=== PATIENT | female | born 1990 | race Caucasian/White ===

== ENCOUNTER → 2019-03-09 13:45 | Outpatient (CLI) | payer BC, SELFPAY ==
[2019-03-09 14:49] LABS: hCG Titer Quant., Serum 9956 mIU/mL (1-3)
== END ==
PROVIDERS: Family Provider Family Medicine; PCP Family Medicine; Referring Provider Obstetrics & Gynecology; Visit Provider Obstetrics & Gynecology
DX: N92.6 Irregular menstruation, unspecified (principal)
CPT/HCPCS: 36415; 84702

== ENCOUNTER → 2019-03-20 13:52 | Outpatient (CLI) | payer BC, SELFPAY ==
--- NOTE | 2019-03-20 13:54 | US_ITS ---
STUDY: FIRST TRIMESTER OBSTETRICAL ULTRASOUND REASON FOR EXAM: Female, 28 years old dating , viability LMP: February 01, 2019. TECHNIQUE: Transabdominal and Transvaginal TECHNICAL QUALITY: Adequate. PRIOR ULTRASOUND: None. FINDINGS: There is visualization of a single gestational sac in a normal intrauterine position. The mean sac diameter (MSD) measures 1.34 cm, indicating an estimated gestational age (EGA) of 6 weeks, 0 days. The gestational sac shape is within normal limits. There is a visualized yolk sac. The yolk sac measures 5.8 mm. The placenta is non-visualized. There is visualization of a live embryo. The crown-rump length (CRL) measures 1.47 cm, indicating an estimated gestational age (EGA) of 7 weeks, 5 days. There is demonstrated cardiac activity with a heart rate of 127 bpm. The estimated gestation age (EGA) by LMP is 6 weeks, 5 days. The estimated date of delivery (ALIYAH) by LMP is November 08, 2019. The estimated gestation age (EGA) by US is 6 weeks, 6 days. The estimated date of delivery (ALIYAH) by US is November 07, 2019. The uterus measures 10.6 cm x 5.6 cm x 4.0 cm. There is no demonstrated uterine fibroid. The cervix is closed. The right ovary measures 2.4 cm x 2.1 cm x 1.8 cm. There is no right ovarian cyst. There is no visualized right adnexal mass or complex lesion. The left ovary measures 1.9 cm x 1.7 Abel by 1.4 cm. There is no left ovarian cyst. There is no visualized left adnexal mass or complex lesion. There is no fluid in the cul de sac. US/Init OB < 14Wks US IMPRESSION: Single live intrauterine gestation with a mean gestational age of 6 weeks and 6 days. Electronically Signed: Yair Barber, at 10:10 EST , Service support ,
== END ==
PROVIDERS: Referring Provider Obstetrics & Gynecology; Visit Provider Obstetrics & Gynecology
DX: O36.80X0 Pregnancy with inconclusive fetal viability, not applicable or unspecified (principal); Z3A.00 Weeks of gestation of pregnancy not specified
CPT/HCPCS: 76801

== ENCOUNTER → 2019-04-24 17:00 | Outpatient (CLI) | payer BC, SELFPAY ==
[2019-04-24 14:01] VITALS: BMI 44.1
[2019-04-24 18:18] LABS: Amphetamine Urine VISTA NEGATIVE (<1000 ng/mL); Barbiturate Urine VISTA NEGATIVE (< 200 ng/mL); Benzodiazepine Urine VISTA NEGATIVE (< 200 ng/mL); Cocaine Urine VISTA NEGATIVE (< 300 ng/mL); Ecstacy Urine VISTA NEGATIVE (< 500 ng/mL); Methadone Urine VISTA NEGATIVE (< 300 ng/mL); PCP Urine VISTA NEGATIVE (< 25 ng/mL); THC Urine VISTA NEGATIVE (< 50 ng/mL); Vista UDS pH Range 5
[2019-04-24 19:36] LABS: Chlamydia Trachomatis by PCR Negative (Negative); Neisserai gonorrhoeae by PCR Negative (Negative); Probe Check PASS; Sample Adequacy Control PASS; Specimen Processing Control PASS
[2019-04-26 20:39] LABS: HPV Reflexed? NOT INDICATED
== END ==
PROVIDERS: Referring Provider Obstetrics & Gynecology; Visit Provider Obstetrics & Gynecology
DX: Z34.90 Encounter for supervision of normal pregnancy, unspecified, unspecified trimester (principal)
CPT/HCPCS: 80307; 87086; 87088; 87491; 87591; 88175; G0145

== ENCOUNTER → 2019-05-26 12:40 | Outpatient (CLI) | payer BC, SELFPAY ==
[2019-04-24 14:01] VITALS: BMI 44.1
[2019-05-26 13:55] LABS: Absolute Lymphocyte Count 1.71 X10^3/uL (0.83-4.51); Absolute Neutrophil Count 9.1 X10^3/uL (2.0-7.7); Basophil# 0.04 X10^3/uL; Basophil% 0.3 % (0-1); Eosinophil# 0.09 X10^3/uL; Eosinophils% 0.8 % (0-5); Hematocrit 35.9 % (37-47); Hemoglobin 12.5 g/dL (12.0-15.0); Lymphocyte # 1.71 X10^3/ul (4.0); Lymphocyte % 14.3 % (19-41); Mean Corp Hgb Conc 34.8 g/dL (32-36); Mean Corpuscular Volume 86.1 fL (81-99); Mean Platelet Vol. 10.3 fl (6.2-12.0); Monocyte# 0.95 X10^3/uL; Monocyte% 7.9 % (0-10); NRBC Flagged by Analyzer 0 % (0-5); Neutrophil % 76.2 % (47-70); Platelet Count 354 K/mm3 (150-450); RBC Distribution Width CV 12.6 % (11.6-14.6); RBC Distribution Width SD 39.7 fl (35.1-43.9); Red Blood Count 4.17 M/mm3 (4.2-5.4)
[2019-05-26 14:16] LABS: Glucose Challenge Gest 1H 50g 90 mg/dL (70-140)
[2019-05-26 14:54] LABS: HIV - WCH Non-Reactive (Nonreactive); Hepatitis B Surface Antigen Non-Reactive (Nonreactive); Hepatitis C Antibody Non-Reactive (Nonreactive); Rubella IgG 41.8 IU/mL
[2019-06-01 02:25] LABS: Rapid Plasmin Reagin (RPR) NONREACTIVE (NONREACTIVE)
== END ==
PROVIDERS: Referring Provider Obstetrics & Gynecology; Visit Provider Obstetrics & Gynecology
DX: Z34.90 Encounter for supervision of normal pregnancy, unspecified, unspecified trimester (principal)
CPT/HCPCS: 36415; 82950; 85025; 86592; 86703; 86762; 86803; 86850; 86900; 86901; 87340

== ENCOUNTER → 2019-08-18 10:09 | Outpatient (CLI) | payer BC, SELFPAY ==
[2019-08-18 09:58] VITALS: BMI 44.1
[2019-08-18 11:19] LABS: Absolute Lymphocyte Count 1.73 X10^3/uL (0.83-4.51); Absolute Neutrophil Count 7.1 X10^3/uL (2.0-7.7); Basophil# 0.05 X10^3/uL; Basophil% 0.5 % (0-1); Eosinophil# 0.06 X10^3/uL; Eosinophils% 0.6 % (0-5); Hematocrit 36.5 % (37-47); Hemoglobin 12.5 g/dL (12.0-15.0); Lymphocyte # 1.73 X10^3/ul (4.0); Lymphocyte % 18.5 % (19-41); Mean Corp Hgb Conc 34.2 g/dL (32-36); Mean Corpuscular Hgb 30.2 pg (27.0-32.0); Mean Corpuscular Volume 88.2 fL (81-99); Mean Platelet Vol. 10.4 fl (6.2-12.0); Monocyte# 0.43 X10^3/uL; Monocyte% 4.6 % (0-10); NRBC Flagged by Analyzer 0 % (0-5); Neutrophil # 7.05 X10^3/uL (2.7-7.7); Neutrophil % 75.3 % (47-70); Platelet Count 337 K/mm3 (150-450); RBC Distribution Width CV 12.3 % (11.6-14.6); RBC Distribution Width SD 39.3 fl (35.1-43.9); Red Blood Count 4.14 M/mm3 (4.2-5.4); White Blood Count 9.4 K/mm3 (4.4-11.0)
[2019-08-18 11:24] LABS: Glucose Challenge Gest 1H 50g 166 mg/dL (70-140)
== END ==
PROVIDERS: Referring Provider Nurse Practitioner Women's Health; Visit Provider Nurse Practitioner Women's Health
DX: O09.90 Supervision of high risk pregnancy, unspecified, unspecified trimester (principal); Z3A.00 Weeks of gestation of pregnancy not specified
CPT/HCPCS: 36415; 82950; 85025; 86850; 86900; 86901

== ENCOUNTER → 2019-08-22 09:47 | Outpatient (CLI) | payer BC, SELFPAY ==
[2019-08-18 09:58] VITALS: BMI 44.1
[2019-08-22 11:01] LABS: Glucose GTT-Gestation. Fasting 83 mg/dL (<105)
[2019-08-22 12:32] LABS: Glucose GTT-Gestational 1 Hr 145 mg/dL (<190)
[2019-08-22 13:43] LABS: Glucose GTT-Gestational 2 Hr 130 mg/dL (<165)
[2019-08-22 15:46] LABS: Glucose GTT-Gestational 3 Hr 93 L (<145)
== END ==
PROVIDERS: Nurse Practitioner Women's Health; Visit Provider Obstetrics & Gynecology
DX: O99.810 Abnormal glucose complicating pregnancy (principal); Z3A.00 Weeks of gestation of pregnancy not specified
CPT/HCPCS: 36415; 82951; 82952

== ENCOUNTER → 2019-09-13 12:36 | Outpatient (CLI) | payer BC, MEDICAID, SELFPAY ==
[2019-09-01 10:40] VITALS: BMI 44.1
--- NOTE | 2019-09-13 12:38 | US_ITS ---
STUDY: SECOND AND THIRD TRIMESTER OBSTETRICAL ULTRASOUND - LIMITED REASON FOR EXAM: Female, 29 years old growth LMP: January 31, 2019. PRIOR ULTRASOUND: Comparison is made with prior examination dated March 20, 2019. TECHNIQUE: Transabdominal TECHNICAL QUALITY: Adequate. FINDINGS: There is a single intrauterine fetus. The fetus is in a cephalic presentation. There is demonstrated cardiac activity with a heart rate of 153 bpm. There is a normal amniotic fluid volume. The largest amniotic fluid pocket measures 8.6 cm. The amniotic fluid index (TRACE) is 20.3 cm. This is in upper limits of normal. The placenta is fundal in location. There are Grade 1 placental changes. The cervix measures 4.1 cm in length. BIOMETRY: BPD: 8.2 cm: 32 weeks, 5 days HC: 30.5 cm: 33 weeks, 6 days AC: 28.0 cm: 32 weeks, 0 days FL: 5.8 cm: 30 weeks, 2 days Age by LMP: 32 weeks, 1 days. ALIYAH by LMP: November 07, 2019. age by prior US: 32 weeks, 1 days. ALIYAH by prior US: November 07, 2019. age by current US: 32 weeks, 0 days. ALIYAH by current US: November 08, 2019. Estimated weight: 1842 grams, +/- 273 grams, 30 percentile. US/OB Limited With Biometrics IMPRESSION: Single live intrauterine gestation with a mean gestational age of 32 weeks and 1 day. The amniotic fluid index measures upper limits of normal. Electronically Signed: Yair Barber, at 14:13 EDT , Service support ,
== END ==
PROVIDERS: Referring Provider Obstetrics & Gynecology; Visit Provider Obstetrics & Gynecology
DX: Z34.90 Encounter for supervision of normal pregnancy, unspecified, unspecified trimester (principal)
CPT/HCPCS: 76816

== ENCOUNTER 2019-09-14 14:55 | Outpatient (CLI) | payer BC, MEDICAID, SELFPAY ==
[2019-09-14] VITALS (16 sets, daily range): BP systolic 135–151; BP diastolic 60–88; PULSE 60–72; TEMP 36.6; O2SAT 98; BMI 48.7
[2019-09-14] MEDS: 0.9% Saline Lock 10 ML Syringe IV (15:25)
[2019-09-14 16:05] LABS: Hematocrit 35.7 % (37-47); Mean Corp Hgb Conc 33.6 g/dL (32-36); Mean Corpuscular Hgb 30.1 pg (27.0-32.0); Mean Corpuscular Volume 89.5 fL (81-99); Mean Platelet Vol. 11.3 fl (6.2-12.0); Platelet Count 321 K/mm3 (150-450); RBC Distribution Width CV 12.1 % (11.6-14.6); RBC Distribution Width SD 39.2 fl (35.1-43.9); Red Blood Count 3.99 M/mm3 (4.2-5.4); White Blood Count 11.3 K/mm3 (4.4-11.0)
[2019-09-14 16:09] LABS: Protein, Urine (Random) 6.3 mg/dL (<11.9); Protein:Creat Ratio 254 mg/g CRE (0-200)
[2019-09-14 17:09] LABS: Prothrombin Time (Protime)PT. 12.4 SECONDS (11.7-14.9)
[2019-09-14 17:10] LABS: Partial Thromboplast Time 28.3 Seconds (24.1-36.2)
[2019-09-14 17:17] LABS: AST(SGOT) 24 U/L (15-37); Alanine Aminotransfer ALT/SGPT 15 U/L (13-56); Creatinine, Serum 0.74 mg/dL (0.55-1.02); EST Glomerular Filtration Rate 98 mL/min (>60); Est Glom Filt Rate - Afr Amer 119 mL/min (>60); Estimated Creatinine Clearance 84.65 ml/min; Uric Acid 4.4 mg/dL (2.6-6.0)
[2019-09-14] MEDS: Betamethasone/Betamethasone 30 MG/5 ML Vial 12 MG IM (18:12)
--- NOTE | 2019-09-15 22:09 | OB.TRI.PN ---
Progress Notes Date of Service: 09/14/19 Progress Note: Patient evaluated for elevated blood pressures in the office upon routine visit with testing for obesity. Patient had normal growth ultrasound this week. Elevated blood pressures 140s over 90s, normal labs and negative proteinuria. First dose of Celestone given. Discharge home preeclampsia precautions reviewed follow-up in the office on Wednesday and follow-up tomorrow in triage for repeat steroid Laboratory Studies: Laboratory Tests 09/14/19 09/14/19 09/14/19 Range/Units 15:25 15:25 15:25 WBC (4.4-11.0) K/mm3 RBC (4.2-5.4) M/mm3 Hgb (12.0-15.0) g/dL Hct (37-47) % MCV (81-99) fL MCH (27.0-32.0) pg MCHC (32-36) g/dL RDW Std Deviation (35.1-43.9) fl RDW Coeff of Alex (11.6-14.6) % Plt Count (150-450) K/mm3 MPV (6.2-12.0) fl PT 12.4 (11.7-14.9) SECONDS INR 1.0 APTT 28.3 (24.1-36.2) Seconds Creatinine 0.74 (0.55-1.02) mg/dL Estim Creat Clear Calc 84.65 ml/min Est GFR (MDRD) Af Amer 119 (>60) mL/min Est GFR (MDRD) Non-Af 98 (>60) mL/min Uric Acid 4.4 (2.6-6.0) mg/dL AST 24 (15-37) U/L ALT 15 (13-56) U/L U Random Total Protein 6.3 (<11.9) mg/dL Urine Creatinine 24.80 (NO RANGE EST.) mg/dL Protein/Creatinin Ratio 254 H (0-200) mg/g CRE 09/14/19 Range/Units 15:25 WBC 11.3 H (4.4-11.0) K/mm3 RBC 3.99 L (4.2-5.4) M/mm3 Hgb 12.0 (12.0-15.0) g/dL Hct 35.7 L (37-47) % MCV 89.5 (81-99) fL MCH 30.1 (27.0-32.0) pg MCHC 33.6 (32-36) g/dL RDW Std Deviation 39.2 (35.1-43.9) fl RDW Coeff of Alex 12.1 (11.6-14.6) % Plt Count 321 (150-450) K/mm3 MPV 11.3 (6.2-12.0) fl PT (11.7-14.9) SECONDS INR APTT (24.1-36.2) Seconds Creatinine (0.55-1.02) mg/dL Estim Creat Clear Calc ml/min Est GFR (MDRD) Af Amer (>60) mL/min Est GFR (MDRD) Non-Af (>60) mL/min Uric Acid (2.6-6.0) mg/dL AST (15-37) U/L ALT (13-56) U/L U Random Total Protein (<11.9) mg/dL Urine Creatinine (NO RANGE EST.) mg/dL Protein/Creatinin Ratio (0-200) mg/g CRE Multi Select Codes - Urinary/Genital Urinary/Genital CPT Codes: No Charge
== END 2019-09-14 18:27 | disposition home or self-care (01) ==
PROVIDERS: Referring Provider Obstetrics & Gynecology; Visit Provider Obstetrics & Gynecology
DX: O99.210 Obesity complicating pregnancy, unspecified trimester (principal); E66.9 Obesity, unspecified; Z3A.00 Weeks of gestation of pregnancy not specified; R03.0 Elevated blood-pressure reading, without diagnosis of hypertension
CPT/HCPCS: 36415; 59025; 59050; 82565; 82570; 84156; 84450; 84460; 84550; 85027; 85610; 85730; 96372; 99218; A4216; G0378; J0702

== ENCOUNTER 2019-09-15 17:40 | Outpatient (CLI) | payer BC, MEDICAID, SELFPAY ==
[2019-09-14 15:24] VITALS: BMI 48.7
[2019-09-15 17:50] VITALS: BMI 48.3
[2019-09-15 17:55] VITALS: BP 150/78; PULSE 77; TEMP 36.8
[2019-09-15 18:19] VITALS: BP 144/75; PULSE 71
[2019-09-15] MEDS: Betamethasone/Betamethasone 30 MG/5 ML Vial 12 MG IM (18:22)
--- NOTE | 2019-09-15 22:08 | OB.TRI.PN ---
Progress Notes Date of Service: 09/15/19 Progress Note: Last known given injection secondary to prematurity, gestational hypertension. Preeclampsia precautions reviewed and Procardia prescription ordered for patient follow-up in the office on Wednesday Multi Select Codes - Urinary/Genital Urinary/Genital CPT Codes: No Charge
== END 2019-09-15 18:45 | disposition home or self-care (01) ==
LOC: WPOUT 17:48 → WP 17:49
PROVIDERS: Visit Provider Obstetrics & Gynecology
DX: O13.9 Gestational [pregnancy-induced] hypertension without significant proteinuria, unspecified trimester (principal); Z3A.00 Weeks of gestation of pregnancy not specified
CPT/HCPCS: 96372; 99218; G0378; J0702

== ENCOUNTER 2019-09-19 12:16 | Inpatient (IN) | payer BC, MEDICAID, SELFPAY ==
[2019-09-19] VITALS (93 sets, daily range): BP systolic 110–185; BP diastolic 57–116; PULSE 50–107; RESP 14–18; TEMP 36.2–37.9; O2SAT 94–971; BMI 48.3; BMI 49.2
[2019-09-19 10:16] LABS: Protein, Urine (Random) 10.4 mg/dL (<11.9); Protein:Creat Ratio 355 mg/g CRE (0-200)
[2019-09-19 10:20] LABS: Hematocrit 34.7 % (37-47); Hemoglobin 11.5 g/dL (12.0-15.0); Mean Corp Hgb Conc 33.1 g/dL (32-36); Mean Corpuscular Volume 90.6 fL (81-99); Platelet Count 315 K/mm3 (150-450); RBC Distribution Width CV 12.2 % (11.6-14.6); RBC Distribution Width SD 39.7 fl (35.1-43.9); Red Blood Count 3.83 M/mm3 (4.2-5.4); White Blood Count 12.8 K/mm3 (4.4-11.0)
[2019-09-19 10:31] LABS: Prothrombin Time (Protime)PT. 12.2 SECONDS (11.7-14.9)
[2019-09-19 10:32] LABS: Partial Thromboplast Time 26.8 Seconds (24.1-36.2)
[2019-09-19 10:42] LABS: AST(SGOT) 22 U/L (15-37); Alanine Aminotransfer ALT/SGPT 20 U/L (13-56); Creatinine, Serum 0.72 mg/dL (0.55-1.02); EST Glomerular Filtration Rate 101 mL/min (>60); Est Glom Filt Rate - Afr Amer 122 mL/min (>60); Uric Acid 4.2 mg/dL (2.6-6.0)
[2019-09-19] MEDS: Lactated Ringers 1,000 ML 50 ML IV (11:33)
[2019-09-19] MEDS: Magnesium Sulfate 4gm/100mL 4 GM/100 ML IV.SOLN. IV (11:48)
[2019-09-19] MEDS: hydrALAZINE 20 MG/ML Vial 10 MG IV (11:54)
--- NOTE | 2019-09-19 12:09 | HP.PCM_ITS ---
- Problem List (1) Preeclampsia, severe Status: Acute (2) Abnormal glucose affecting Status: Acute Comment: 3gtt normal (3) Rh negative status during Status: Acute Qualifiers: Trimester: second trimester Qualified Code(s): O26.892 - Other specified related conditions, second trimester; Z67.91 - Unspecified blood type, Rh negative Comment: B neg- Rhogam PRN and was given at 28 weeks (4) Obesity affecting Status: Acute Qualifiers: Trimester: second trimester Qualified Code(s): O99.212 - Obesity complicating , second trimester Comment: BMI>40. nl 1 TM glucola, encouraged healthy weight gain, plan testing after 32 weeks- normal US 09/12 (5) Supervision of high risk , antepartum Status: Acute Comment: PRR ALIYAH 11/07/19 girl Juan (6) Status: Acute Qualifiers: Weeks of gestation: 33 weeks Qualified Code(s): Z3A.33 - 33 weeks gestation of Comment: NIPT, carrier, and ntd screening declined. normal anatomy History Date of Admission: 09/19/19 Final ALIYAH: 11/07/19 Gestational age: 33 Weeks and 0 Days History of this : This is a 29 year-old, , at 33 weeks gestational age presents secondary to elevated blood pressures. Patient was seen at the end of last week and diagnose d with gestational hypertension and was given 2 doses of Celestone. Today she followed up for repeat evaluation and blood pressures were noted to be severely elevated. Patient is asymptomatic without headache or visual changes or nausea or vomiting. Initial blood work was within normal limits.. Medical History: Medical History (Last Reviewed 09/19/19 @ 08:36 by Zandra Ramirez) Hypertension affecting O16.9 Allergies No Known Allergies Allergy (Verified 09/19/19 08:37) Home Medications: Home Medications multivitamin no.47-iron fum 27 mg-folate no.1 1 mg-dha 300 mg capsule 1 cap PO DAILY 04/24/19 Nifedipine [Procardia Xl] 30 mg PO DAILY #6 tab.er.24 09/15/19 Smoking Status: Never smoker Alcohol: None Number of Fetus(es): 1 NST - FHR Rate Baby A Baseline: 140 Variability:: Moderate Accelerations:: 15 x 15 Decelerations:: None NST Reactive:: Yes FHR Category:: Category I Uterine Activity:: no History Past Pregnancies: Past Pregnancies Delivery Date Name GA/ Weeks Outcome Route Wt Infant Sex Labor Length Anesthesia Delivery Location Provider FOB Labs: Mom's Problem List Problem Status Onset Code Preeclampsia Acute O14.90 Mom's Labs & Results 09/19/19 09/19/19 09/19/19 09:45 10:10 10:10 WBC 12.8 H RBC 3.83 L Hgb 11.5 L Hct 34.7 L MCV 90.6 MCH 30.0 MCHC 33.1 RDW Std Deviation 39.7 RDW Coeff of Alex 12.2 Plt Count 315 MPV 11.0 Immature Gran % (Auto) Neut % (Auto) Lymph % (Auto) Cherry % (Auto) Eos % (Auto) Baso % (Auto) Absolute Neuts (auto) Absolute Lymphs (auto) Nucleated RBC % Differential Comment PT 12.2 INR 1.0 APTT 26.8 Sodium Potassium Chloride Carbon Dioxide Anion Gap BUN Creatinine Estim Creat Clear Calc Est GFR (MDRD) Af Amer Est GFR (MDRD) Non-Af BUN/Creatinine Ratio Glucose Uric Acid Calcium Total Bilirubin AST ALT Alkaline Phosphatase Total Protein Albumin Globulin Albumin/Globulin Ratio U Random Total Protein 10.4 Urine Creatinine 29.30 Protein/Creatinin Ratio 355 H Blood Type Antibody Screen 09/19/19 09/19/19 09/19/19 10:10 18:10 18:10 WBC RBC Hgb Hct MCV MCH MCHC RDW Std Deviation RDW Coeff of Alex Plt Count MPV Immature Gran % (Auto) Neut % (Auto) Lymph % (Auto) Cherry % (Auto) Eos % (Auto) Baso % (Auto) Absolute Neuts (auto) Absolute Lymphs (auto) Nucleated RBC % Differential Comment PT INR APTT Sodium 137 Potassium 3.9 Chloride 105 Carbon Dioxide 22.0 Anion Gap 10 BUN 9 Creatinine 0.72 0.75 Estim Creat Clear Calc 87.00 83.52 Est GFR (MDRD) Af Amer 122 117 Est GFR (MDRD) Non-Af 101 97 BUN/Creatinine Ratio 12.0 Glucose 100 Uric Acid 4.2 Calcium 7.8 L Total Bilirubin 0.20 AST 22 46 H ALT 20 50 Alkaline Phosphatase 92 Total Protein 7.4 Albumin 2.8 L Globulin 4.6 H Albumin/Globulin Ratio 0.6 L U Random Total Protein Urine Creatinine Protein/Creatinin Ratio Blood Type Pending Antibody Screen Pending 09/19/19 18:10 WBC 22.9 H RBC 4.35 Hgb 13.2 Hct 39.0 MCV 89.7 MCH 30.3 MCHC 33.8 RDW Std Deviation 40.5 RDW Coeff of Alex 12.6 Plt Count 300 MPV 10.6 Immature Gran % (Auto) 0.600 Neut % (Auto) 89.6 H Lymph % (Auto) 4.5 L Cherry % (Auto) 5.1 Eos % (Auto) 0.0 Baso % (Auto) 0.2 Absolute Neuts (auto) 20.5 H Absolute Lymphs (auto) 1.04 Nucleated RBC % 0 Differential Comment SCANNED PT INR APTT Sodium Potassium Chloride Carbon Dioxide Anion Gap BUN Creatinine Estim Creat Clear Calc Est GFR (MDRD) Af Amer Est GFR (MDRD) Non-Af BUN/Creatinine Ratio Glucose Uric Acid Calcium Total Bilirubin AST ALT Alkaline Phosphatase Total Protein Albumin Globulin Albumin/Globulin Ratio U Random Total Protein Urine Creatinine Protein/Creatinin Ratio Blood Type Antibody Screen Social History Smoking Status Never smoker Review of Systems Constitutional: Denies: Fever, Malaise Eyes: Denies: Blurred vision, Vision Change HEENT: Denies: Head Aches, Visual Changes Cardiovascular: Denies: Chest Pain, Palpitations Respiratory: Denies: Cough, Shortness of Breath, Wheezing Gastrointestinal: Denies: Abdominal Pain, Diarrhea, Nausea, Vomiting Genitourinary: Denies: Dysuria, Hematuria Musculoskeletal: Denies: Joint Pain, Muscle pain Skin: Denies: Lesions, Rash Neurological: Denies: Blurred vision, Focal weakness, Headaches Psychiatric: Denies: Anxiety, Depression Endocrine: Denies: Heat/ Cold Intolerance Hematologic/ Lymphatic: Denies: Easy Bruising, Easy Bleeding Physical Exam Vitals: Vital Signs Temp Pulse Resp BP Pulse Ox 98.3 F 74 16 144/80 H 97 09/19/19 11:48 09/19/19 12:07 09/19/19 11:48 09/19/19 12:03 09/19/19 12:07 General: Alert, Cooperative, No apparent distress HEENT: Atraumatic, Normocephalic. Negative for: Thyromegaly, Lymphadenopathy Cardiovascular: Regular rate Lungs: Normal air movement Abdomen: Soft, Non Tender, Gravid Neurological: Deep Tendon Reflexes 2+/4 and Symmetrical, Neuro grossly intact. Negative for: Clonus [employer]OS[employer] PROJECT MANAGER: Normal external genitalia. Negative for: Vulvar lesions Estimated gestational size: Appropriate for gestational size Presentation: Cephalic Cervix Dilation (cm): 0 Assessment/Plan All Active Problems (Last Reviewed 09/19/19 @ 08:36 by Zandra Ramirez) Preeclampsia, severe (Acute) Preeclampsia (Acute) Abnormal glucose affecting (Acute) Rh negative status during (Acute) Obesity affecting (Acute) Supervision of high risk , antepartum (Acute) (Acute) Gestational hypertension (Ruled-out) This is a 29 year-old, G 1P0 at 33 weeks gestational age presents with preeclampsia with severe features Admit administer magnesium sulfate. Repeat labs in 6 to 8 hours to follow-up progression. Patient now has proteinuria which is new from last week status post Celestone September 13 and . This with the patient recommend expectant managem ent if she is stable on magnesium sulfate and blood pressures are able to be controlled with the hypertensive protocol and plan delivery by 34 weeks..
[2019-09-19] MEDS: Magnesium Sulfate 4gm/100mL 2 GM/50 ML IV.SOLN. IV (12:15)
[2019-09-19] MEDS: Magnesium Sulfate 20 GM/500 ML BAG IV ×2 (12:25→22:45)
[2019-09-19] MEDS: hydrALAZINE 10 MG Tablet PO ×2 (13:30→15:08)
[2019-09-19 18:26] LABS: Absolute Lymphocyte Count 1.04 X10^3/uL (0.83-4.51); Absolute Neutrophil Count 20.5 X10^3/uL (2.0-7.7); Basophil# 0.05 X10^3/uL; Basophil% 0.2 % (0-1); Eosinophil# 0.01 X10^3/uL; Hemoglobin 13.2 g/dL (12.0-15.0); Lymphocyte # 1.04 X10^3/ul (4.0); Lymphocyte % 4.5 % (19-41); Mean Corp Hgb Conc 33.8 g/dL (32-36); Mean Corpuscular Hgb 30.3 pg (27.0-32.0); Mean Corpuscular Volume 89.7 fL (81-99); Mean Platelet Vol. 10.6 fl (6.2-12.0); Monocyte# 1.17 X10^3/uL; Monocyte% 5.1 % (0-10); NRBC Flagged by Analyzer 0 % (0-5); Neutrophil # 20.46 X10^3/uL (2.7-7.7); Neutrophil % 89.6 % (47-70); POSITIVE DIFFERENTIAL YES; Platelet Count 300 K/mm3 (150-450); RBC Distribution Width CV 12.6 % (11.6-14.6); RBC Distribution Width SD 40.5 fl (35.1-43.9); Red Blood Count 4.35 M/mm3 (4.2-5.4); White Blood Count 22.9 K/mm3 (4.4-11.0)
[2019-09-19 18:32] LABS: Differential Indicated SCAN CRITERIA MET
[2019-09-19 18:44] LABS: ALB/GLOB Ratio 0.6 RATIO (0.9-2.4); AST(SGOT) 46 U/L (15-37); Alanine Aminotransfer ALT/SGPT 50 U/L (13-56); Albumin, Serum 2.8 g/dL (3.2-5.0); Alkaline Phosphatase 92 U/L (45-117); Anion Gap 10 (5-15); BUN 9 mg/dL (7-18); Calcium,Total 7.8 mg/dL (8.5-10.1); Chloride 105 mmol/L (98-107); Creatinine, Serum 0.75 mg/dL (0.55-1.02); EST Glomerular Filtration Rate 97 mL/min (>60); Est Glom Filt Rate - Afr Amer 117 mL/min (>60); Estimated Creatinine Clearance 83.52 ml/min; Globulin 4.6 g/dL (2.2-4.2); Glucose 100 mg/dL (74-106); Potassium 3.9 mmol/L (3.5-5.1); Protein, Total 7.4 g/dL (6.4-8.2); Sodium Level 137 mmol/L (136-145)
[2019-09-19 19:30] LABS: Differential Comment SCANNED
--- NOTE | 2019-09-19 19:32 | PCM.PN.BLA ---
Progress Note Patient has had borderline severely elevated blood pressures throughout the day while on magnesium and given IV hydralazine. Patient feeling sick and nauseous and some chest tightness with no tachycardia and normal pulse ox at 97%. Repeat labs show leukocytosis of 23 and rising AST and increasing creatinine. After counseling patient and her spouse, she has already received Celestone x2 so the risk of expectant management is outweighed by the benefits of delivery due to signs of declining preeclampsia with severe features. Recommend proceeding with delivery. Cervix is closed thick and high and remote from delivery counseled patient regarding options of induction of labor versus primary , decision to proceed with primary at this time. STROKE Vital Signs/Narrative: Vital Signs Temp Pulse Resp BP Pulse Ox 09/19/19 19:02 100.2 F H 78 16 158/89 H 98 09/19/19 18:37 97 09/19/19 18:30 77 98 09/19/19 18:07 73 09/19/19 18:06 155/70 H 09/19/19 17:42 75 137/65 H 09/19/19 17:41 137/65 H 09/19/19 17:30 185/88 H 09/19/19 17:26 75 185/88 H 98 09/19/19 17:25 99.0 F 73 185/88 H 98 09/19/19 17:15 99.0 F 78 18 98 09/19/19 16:00 78 17 147/76 H 98 09/19/19 15:56 98 09/19/19 15:55 78 147/76 H
[2019-09-19] MEDS: Acetaminophen 325 MG Tablet PO (20:14)
[2019-09-19] MEDS: Labetalol 20 MG/4 ML Vial IV (20:41)
[2019-09-19] MEDS: Sodium Citrate/Citric Acid 30 ML UDC PO (20:56)
--- NOTE | 2019-09-19 21:08 | PCM.OPRPT ---
Problem List (1) Preeclampsia, severe Status: Acute (2) Abnormal glucose affecting Status: Acute Comment: 3gtt normal (3) Rh negative status during Status: Acute Qualifiers: Trimester: second trimester Qualified Code(s): O26.892 - Other specified related conditions, second trimester; Z67.91 - Unspecified blood type, Rh negative Comment: B neg- Rhogam PRN and was given at 28 weeks (4) Obesity affecting Status: Acute Qualifiers: Trimester: second trimester Qualified Code(s): O99.212 - Obesity complicating , second trimester Comment: BMI>40. nl 1 TM glucola, encouraged healthy weight gain, plan testing after 32 weeks- normal US 09/12 (5) Supervision of high risk , antepartum Status: Acute Comment: PRR ALIYAH 11/07/19 girl Juan (6) Status: Acute Qualifiers: Weeks of gestation: 33 weeks Qualified Code(s): Z3A.33 - 33 weeks gestation of Comment: NIPT, carrier, and ntd screening declined. normal anatomy Delivery Classification: SHASTA Final ALIYAH: 11/07/19 Gestational age: 33 Weeks and 0 Days title i paraprofessional: osmin augustine Type of Anesthesia:: Spinal Special Medications: none Implants Used: none Date of Procedure: 09/19/19 Pre-Operative Diagnosis: preeclampsia with severe features, remote from delivery Post-Operative Diagnosis: same Description of Procedure: Spinal anesthesia was placed without difficulty. Gomez catheter was placed. The patient was placed in the dorsal supine position with leftward tilt. Patient was prepped and draped in the normal sterile fashion. Pfannenstiel skin incision was made with the scalpel and carried through to the underlying layer of fascia with the scalpel. Fascia was nicked in the midline and the incision extended laterally. The rectus bellies were dissected off superiorly and inferiorly with out complication both sharply and bluntly. The peritoneum was entered digitally. The incision was stretched and a low transverse uterine incision was made with the scalpel. The 's head was delivered atraumatically followed by the anterior and posterior shoulders without complication the rest of the infant delivered. The cord was clamped and cut and the infant was handed off to awaiting nurse. The placenta was delivered spontaneously immediately following and was noted to be intact and have a three-vessel cord. The uterus was exteriorized cleared of all clots and debris, and the incision was closed in a double layer closure using #1 Monocryl. The ovaries and fallopian tubes were noted to be within normal limits. The uterus was returned to the maternal abdomen and gutters were cleared of all clots and debris. The peritoneum was closed with 3-0 Monocryl in a running fashion. Gloves were changed prior to fascial closure. Fascia was closed with 0 PDS in a running fashion. Subcutaneous tissue was copiously irrigated and the skin was closed with 3-0 Monocryl in a subcuticular fashion. Mepilex dressing was applied without complication. Patient was taken to recovery in stable condition. It was discussed with the patient that based on the clinical information obtained during this encounter, combined with her history, at this time I would recommend vaginal or cesareans for future deliveries if further pregnancies are desired. Amniotic Membrane Rupture Type: Artificial Amniotic Fluid Description: Clear Placenta Disposition: [facility] Fluids Replaced: crystalloid Cord Entanglement: Around neck x 1, loose Cord Vessel Description: 3 Vessels Esitmated Blood Loss (ml): 900 Gender: Female Delayed cord clamping: Yes Antibiotic Given: Ancef 2 grams IV x1 Pt instructed on risks of surgery: Bleeding, Anesthesia Risks, Infection, Need for Future C-Sections, Injury to surrounding structure(s) including bowel and bladder - Admit VTE Documentation VTE Present on Admission: No VTE Mechan Device Prophylaxis: SCD's Multi Select Codes - Urinary/Genital Urinary/Genital CPT Codes: 07952 Delivery [facility]
[2019-09-19] MEDS: Cefazolin 2 GM in 0.9% Normal Saline 100 ML IV (21:10)
[2019-09-19] MEDS: Oxytocin 30 units/NS 500 ml 30 UNITS/500 ML IV.SOLN 167 UNITS IV (22:45)
[2019-09-20] VITALS (22 sets, daily range): BP systolic 127–162; BP diastolic 50–89; PULSE 75–95; RESP 18–20; TEMP 36.2–37; O2SAT 94–97
[2019-09-20] MEDS: Lactated Ringers 1,000 ML 50 ML IV (01:43)
[2019-09-20] MEDS: Acetaminophen 500 MG Tablet 1000 MG PO ×4 (02:47→21:31)
[2019-09-20] MEDS: Ketorolac 30 MG/ML Syringe IV ×4 (03:51→21:24)
[2019-09-20] MEDS: hydrALAZINE 10 MG Tablet 20 MG PO ×3 (06:04→21:30)
[2019-09-20] MEDS: Magnesium Sulfate 20 GM/500 ML BAG IV ×2 (07:11→17:25)
[2019-09-20 08:40] LABS: Hematocrit 31.6 % (37-47); Hemoglobin 10.4 g/dL (12.0-15.0); Mean Corp Hgb Conc 32.9 g/dL (32-36); Mean Corpuscular Hgb 29.8 pg (27.0-32.0); Mean Corpuscular Volume 90.5 fL (81-99); Mean Platelet Vol. 10.1 fl (6.2-12.0); Platelet Count 252 K/mm3 (150-450); RBC Distribution Width CV 12.6 % (11.6-14.6); RBC Distribution Width SD 41.1 fl (35.1-43.9); Red Blood Count 3.49 M/mm3 (4.2-5.4); White Blood Count 15.6 K/mm3 (4.4-11.0)
[2019-09-20 08:58] LABS: ALB/GLOB Ratio 0.6 RATIO (0.9-2.4); AST(SGOT) 35 U/L (15-37); Alanine Aminotransfer ALT/SGPT 48 U/L (13-56); Albumin, Serum 2.3 g/dL (3.2-5.0); Alkaline Phosphatase 76 U/L (45-117); Anion Gap 8 (5-15); BUN 8 mg/dL (7-18); BUN/Creat Ratio 9.3 RATIO (10-20); Calcium,Total 6.7 mg/dL (8.5-10.1); Chloride 105 mmol/L (98-107); Creatinine, Serum 0.86 mg/dL (0.55-1.02); EST Glomerular Filtration Rate 83 mL/min (>60); Est Glom Filt Rate - Afr Amer 100 mL/min (>60); Estimated Creatinine Clearance 72.83 ml/min; Globulin 3.9 g/dL (2.2-4.2); Glucose 114 mg/dL (74-106); Potassium 4.2 mmol/L (3.5-5.1); Protein, Total 6.2 g/dL (6.4-8.2); Sodium Level 136 mmol/L (136-145)
[2019-09-20] MEDS: 0.9% Saline Lock 10 ML Syringe IV ×3 (09:10→21:53)
[2019-09-20] MEDS: Senna/Docusate Sodium 1 Tablet PO (09:11)
[2019-09-20] MEDS: Enoxaparin 40 MG/0.4 ML Syringe SC ×2 (10:11→21:32)
[2019-09-20] MEDS: NIFEdipine 30 MG Tablet PO (10:11)
--- NOTE | 2019-09-20 21:40 | NURSING ---
Dr. Horton called at this time to confirm RN able to discontinue IV magnesium sulfate. RN reported latest pt BPs WNL and no pt complaints of headache or vision changes at this time with clear lung sounds, appropriate reflexes, and no clonus. RN ordered to discontinue IV fluids at this time. RN to keep saline lock in place until AM. RN to continue to monitor pt.
[2019-09-21] VITALS (8 sets, daily range): BP systolic 122–149; BP diastolic 70–90; PULSE 74–94; RESP 16–18; TEMP 36.2–36.6; O2SAT 95–98
[2019-09-21] MEDS: Acetaminophen 500 MG Tablet 1000 MG PO ×4 (03:12→21:35)
[2019-09-21] MEDS: Naproxen 250 MG Tablet 500 MG PO ×3 (05:55→21:21)
[2019-09-21] MEDS: hydrALAZINE 10 MG Tablet 20 MG PO ×3 (05:56→21:21)
--- NOTE | 2019-09-21 07:53 | PN.OBGYN_ITS ---
Patient Problems: Active and Suspected Problems (Last Reviewed 09/19/19 @ 08:36 by Zandra Ramirez) Preeclampsia, severe (Acute) Preeclampsia (Acute) plan weekly labs, twice weekly nsts, weekly ermias, q 4 week US, home bp monitoring, procardia 30mg started. BMZ given x 2 7/2-3. reviewed preeclampsia precautions recommend 37 week delivery. Subjective: Doing well, no complaints.Pain controlled. Denies CP, SOB, N,V. Ambulating well, tolerating po. Lochia moderate, Baby in SCN:pumping and going well - Physical Exam Vitals/I&O's: Vital Signs Temp Pulse Resp BP Pulse Ox 97.1 F L 94 16 126/90 H 98 09/21/19 07:36 09/21/19 07:36 09/21/19 07:36 09/21/19 07:36 09/21/19 07:36 Oxygen Delivery Method Room Air Weight: 260 lb 12.909 oz Body Mass Index (BMI) 49.2 Intake and Output for Last 24 Hours 09/19/19 09/20/19 09/21/19 23:59 23:59 23:59 Intake Total 1595.00 / 1595.00 4124.73 / 4124.73 Output Total 1000 / 1000 2895 / 3645 750 / 750 Balance 595.00 / 595.00 1229.73 / 479.73 -750 / -750 General: Alert, Oriented x3 Abdomen: Soft, Non-Distended, - - Drsg dry and intact/old drainage only. FF below U Laboratory Results 09/20/19 08:25: WBC 15.6 H, RBC 3.49 L, Hgb 10.4 L, Hct 31.6 L, MCV 90.5, MCH 29.8, MCHC 32.9, RDW Std Deviation 41.1, RDW Coeff of Alex 12.6, Plt Count 252, MPV 10.1 09/20/19 08:25: Sodium 136, Potassium 4.2, Chloride 105, Carbon Dioxide 23.0, Anion Gap 8, BUN 8, Creatinine 0.86, Estim Creat Clear Calc 72.83, Est GFR (MDRD) Af Amer 100, Est GFR (MDRD) Non-Af 83, BUN/Creatinine Ratio 9.3 L, Glucose 114 H, Calcium 6.7 L, Total Bilirubin 0.20, AST 35, ALT 48, Alkaline Phosphatase 76, Total Protein 6.2 L, Albumin 2.3 L, Globulin 3.9, Albumin/Globulin Ratio 0.6 L 09/20/19 15:15: Miscellaneous Test Pending Current Medications Acetaminophen (Tylenol) 1,000 mg PO Q6H [facility] Last Admin: 09/21/19 03:12 Dose: 1,000 mg Documented by: Bisacodyl (Dulcolax) 10 mg RECTAL UD PRN PRN Reason: If no BM Enoxaparin Sodium (Lovenox) 40 mg SC Q12 [facility] Last Admin: 09/20/19 21:32 Dose: 40 mg Documented by: Hydralazine HCl (Apresoline) 20 mg PO TID [facility] Last Admin: 09/21/19 05:56 Dose: 20 mg Documented by: Hydralazine HCl (Apresoline Iv) 10 mg IV Q20M PRN PRN Reason: Elevated BP Hydralazine HCl (Apresoline Iv) 10 mg IV X1 PRN PRN Reason: Elevated BP Hydrocortisone (Hytone) 1 applic TOPICAL TID PRN PRN; Protocol PRN Reason: Discomfort Hydromorphone HCl (Dilaudid Inj) 1 mg IV Q2H PRN PRN PRN Reason: Pain Score 6-10/10 Calcium Gluconate 1 gm/ N/A 10 mls @ 2 mls/min IV X1 PRN PRN Reason: Magnesium Toxicity Calcium Gluconate 1 gm/ N/A 10 mls @ 2 mls/min IV X1 PRN PRN Reason: Magnesium Toxicity Naloxone HCl 4 mg/ Dextrose 504 mls @ 0 mls/hr IV .Q0M PRN; Protocol PRN Reason: Respiratory depression Labetalol HCl (Trandate) 20 mg IV X1 PRN PRN Reason: ELEVATED BLOOD PRESSURE Labetalol HCl (Trandate) 40 mg IV X1 PRN PRN Reason: Elevated BP Labetalol HCl (Trandate) 40 mg IV X1 PRN PRN Reason: Elevated BP Labetalol HCl (Trandate) 80 mg IV X1 PRN PRN Reason: Elevated BP Midazolam HCl (Versed) 2 mg IV X1 PRN PRN Reason: Seizure Activity Midazolam HCl (Versed) 2 mg IV X1 PRN PRN Reason: Seizure Activity Naloxone HCl (Narcan) 0.02 mg IV Q1M PRN PRN Reason: RR <10 and pt unresponsive Naproxen (Naprosyn) 500 mg PO Q8H [facility] Last Admin: 09/21/19 05:55 Dose: 500 mg Documented by: Nifedipine (Procardia Xl) 30 mg PO DAILY [facility] Last Admin: 09/20/19 10:11 Dose: 30 mg Documented by: Ondansetron HCl (Zofran) 4 mg IV Q4H PRN PRN PRN Reason: Nausea Oxycodone HCl (Oxyir) 5 - 10 mg PO Q4H PRN PRN PRN Reason: Pain Score 4-10/10 Prochlorperazine Edisylate (Compazine Iv) 10 mg IV Q6H PRN PRN PRN Reason: NAUSEA Senna/Docusate Sodium (Senokot-S, Marilyn-Colace) 0 tablet PO DAILY [facility] Last Admin: 09/20/19 09:11 Dose: 2 tablet Documented by: Simethicone (Mylicon) 80 mg PO PCHS PRN PRN Reason: Indigestion/stomach pain Sodium Chloride () 10 - 40 ml IV X1 PRN PRN Reason: SALINE FLUSH Last Admin: 09/20/19 21:53 Dose: 10 ml Documented by: Sodium Chloride () 5 - 15 ml IV UD PRN PRN Reason: SALINE FLUSH Medical Necessity - Tobacco Use Smoking Status: Never smoker Assessment/Plan All Active Problems (Last Reviewed 09/19/19 @ 08:36 by Zandra Ramirez) Preeclampsia, severe (Acute) Preeclampsia (Acute) Abnormal glucose affecting (Acute) Rh negative status during (Acute) Obesity affecting (Acute) Supervision of high risk , antepartum (Acute) (Acute) Gestational hypertension (Ruled-out) s/p LTCS PPD # 2 1. routine post care 2. breast feeding- support given 3. rh negative 4. rubella immune 5. BPs controlled this AM
[2019-09-21] MEDS: Senna/Docusate Sodium 1 Tablet PO (09:59)
[2019-09-21] MEDS: NIFEdipine 30 MG Tablet PO (10:00)
[2019-09-21] MEDS: Enoxaparin 40 MG/0.4 ML Syringe SC ×2 (10:00→21:21)
--- NOTE | 2019-09-21 21:29 | PCM.PN.OB ---
Patient Problems: Active and Suspected Problems (Last Reviewed 09/19/19 @ 08:36 by Zandra Ramirez) Preeclampsia, severe (Acute) Preeclampsia (Acute) plan weekly labs, twice weekly nsts, weekly ermias, q 4 week US, home bp monitoring, procardia 30mg started. BMZ given x 2 09/13-3. reviewed preeclampsia precautions recommend 37 week delivery. Subjective: late entry from 09/20/19 patient seen at 12:30pm bps mildly elevated, no CP SOB N V no CURTIS BV pain controlled - Physical Exam Vitals/I&O's: Vital Signs Temp Pulse Resp BP Pulse Ox 97.1 F L 74 16 149/80 H 98 09/21/19 14:12 09/21/19 21:21 09/21/19 14:12 09/21/19 21:21 09/21/19 14:12 Oxygen Delivery Method Room Air Weight: 260 lb 12.909 oz Body Mass Index (BMI) 49.2 Intake and Output for Last 24 Hours 09/19/19 09/20/19 09/21/19 23:59 23:59 23:59 Intake Total 1595.00 / 1595.00 4124.73 / 4124.73 Output Total 1000 / 1000 2895 / 3645 750 / 750 Balance 595.00 / 595.00 1229.73 / 479.73 -750 / -750 General: Alert, Oriented x3 Current Medications Acetaminophen (Tylenol) 1,000 mg PO Q6H [facility] Last Admin: 09/21/19 15:43 Dose: 1,000 mg Documented by: Bisacodyl (Dulcolax) 10 mg RECTAL UD PRN PRN Reason: If no BM Enoxaparin Sodium (Lovenox) 40 mg SC Q12 [facility] Last Admin: 09/21/19 21:21 Dose: 40 mg Documented by: Hydralazine HCl (Apresoline) 20 mg PO TID [facility] Last Admin: 09/21/19 21:21 Dose: 20 mg Documented by: Hydralazine HCl (Apresoline Iv) 10 mg IV Q20M PRN PRN Reason: Elevated BP Hydralazine HCl (Apresoline Iv) 10 mg IV X1 PRN PRN Reason: Elevated BP Hydrocortisone (Hytone) 1 applic TOPICAL TID PRN PRN; Protocol PRN Reason: Discomfort Hydromorphone HCl (Dilaudid Inj) 1 mg IV Q2H PRN PRN PRN Reason: Pain Score 6-10/10 Calcium Gluconate 1 gm/ N/A 10 mls @ 2 mls/min IV X1 PRN PRN Reason: Magnesium Toxicity Calcium Gluconate 1 gm/ N/A 10 mls @ 2 mls/min IV X1 PRN PRN Reason: Magnesium Toxicity Naloxone HCl 4 mg/ Dextrose 504 mls @ 0 mls/hr IV .Q0M PRN; Protocol PRN Reason: Respiratory depression Labetalol HCl (Trandate) 20 mg IV X1 PRN PRN Reason: ELEVATED BLOOD PRESSURE Labetalol HCl (Trandate) 40 mg IV X1 PRN PRN Reason: Elevated BP Labetalol HCl (Trandate) 40 mg IV X1 PRN PRN Reason: Elevated BP Labetalol HCl (Trandate) 80 mg IV X1 PRN PRN Reason: Elevated BP Midazolam HCl (Versed) 2 mg IV X1 PRN PRN Reason: Seizure Activity Midazolam HCl (Versed) 2 mg IV X1 PRN PRN Reason: Seizure Activity Naloxone HCl (Narcan) 0.02 mg IV Q1M PRN PRN Reason: RR <10 and pt unresponsive Naproxen (Naprosyn) 500 mg PO Q8H [facility] Last Admin: 09/21/19 21:21 Dose: 500 mg Documented by: Nifedipine (Procardia Xl) 30 mg PO DAILY [facility] Last Admin: 09/21/19 10:00 Dose: 30 mg Documented by: Ondansetron HCl (Zofran) 4 mg IV Q4H PRN PRN PRN Reason: Nausea Oxycodone HCl (Oxyir) 5 - 10 mg PO Q4H PRN PRN PRN Reason: Pain Score 4-10/10 Prochlorperazine Edisylate (Compazine Iv) 10 mg IV Q6H PRN PRN PRN Reason: NAUSEA Senna/Docusate Sodium (Senokot-S, Marilyn-Colace) 0 tablet PO DAILY [facility] Last Admin: 09/21/19 09:59 Dose: 1 tablet Documented by: Simethicone (Mylicon) 80 mg PO PCHS PRN PRN Reason: Indigestion/stomach pain Sodium Chloride () 10 - 40 ml IV X1 PRN PRN Reason: SALINE FLUSH Last Admin: 09/20/19 21:53 Dose: 10 ml Documented by: Sodium Chloride () 5 - 15 ml IV UD PRN PRN Reason: SALINE FLUSH Medical Necessity - Tobacco Use Smoking Status: Never smoker Assessment/Plan All Active Problems (Last Reviewed 09/19/19 @ 08:36 by Zandra Raimrez) Preeclampsia, severe (Acute) Preeclampsia (Acute) Abnormal glucose affecting (Acute) Rh negative status during (Acute) Obesity affecting (Acute) Supervision of high risk , antepartum (Acute) (Acute) Gestational hypertension (Ruled-out) This is a 29 year-old, G 1P0 at 33 weeks gestational age presents with preeclampsia with severe features s/p LTCS magnesium to be discontinued tonight continue anti HTN medications and protocol PRN routine postop care rh negative- rhogam PRN encouraged oral pain control
--- NOTE | 2019-09-21 21:33 | DCINST_ITS ---
Discharge Diet: No Restrictions Discharge Activity: Return to Normal Activity, May not drive while taking narcotic pain medications., May Shower May resume sexual activity in: 4-6 weeks Call your doctor if your incision/area has: Continuous Slow Oozing, Sudden Increased Bleeding, Increased Pain/ Swelling, Increased Redness, Foul Smelling Discharge Additional Instructions: If you experience any of the following, contact your healthcare provider. * Bleeding that soaks a pad every hour for 2 hours * Fever 100.4 or higher * Unrelieved incision or abdominal pain * Swelling, redness, discharge or bleeding from your incision or episiotomy site * Your incision begins to separate * Problems urinating (including inability to urinate or burning while urinating). * Visual changes * Severe headache * Flu-like symptoms * Pain or redness in one of both of your breasts * Pain, warmth, tenderness or swelling in your legs, especially the calf area * Frequent nausea and vomiting * Symptoms of depression or anxiety If you experience any of the following, call 911 or go to the nearest Emergency Room. * Chest pain * Problems breathing * Seizure activity * Partial or complete paralysis of a body part, slurred speech, weakness or drooping of the face, or a sudden inability to walk or hold your balance Allergies/Adverse Reactions: Allergies No Known Allergies Allergy (Verified 09/19/19 08:37) Medications to take at Discharge multivitamin no.47-iron fum 27 mg-folate no.1 1 mg-dha 300 mg capsule 1 cap PO DAILY 04/24/19 Nifedipine [Procardia Xl] 30 mg PO DAILY #6 tab.er.24 09/15/19 Naproxen [Naprosyn] 250 - 500 mg PO Q8H PRN PRN #30 tab 09/21/19 Oxycodone HCl/Acetaminophen [Percocet 5-325] 1 - 2 tablet PO Q6H PRN PRN 7 Days #15 tablet 09/21/19 The following prescriptions were given: Naproxen [Naprosyn] 250 - 500 mg PO Q8H PRN PRN #30 tab PRN Reason: MILD PAIN Transmission Status: Pending to [id number] Oxycodone HCl/Acetaminophen [Percocet 5-325] 1 - 2 tablet PO Q6H PRN PRN 7 Days #15 tablet PRN Reason: Pain Transmission Status: Sent to [facility] [id number] Please Follow Up With: Myrna Horton MD - [phone] When: Call to make an appointment with your doctor in 6 weeks. If you had elevated Blood pressure or 4th degree laceration you will need to be seen in 2 weeks. Primary Care Physician: Care Physician,No Primary [Primary Care Provider] - Test Results: Test results from this visit will be discussed in further detail at your follow- up appointment, if applicable.
--- NOTE | 2019-09-21 21:34 | DCINST_ITS ---
Discharge Diet: No Restrictions Discharge Activity: May Not Drive - for 2 weeks, May not drive while taking narcotic pain medications., May Shower, May Take a Tub Bath - in 7 days May resume sexual activity in: 4-6 weeks Lifting Restrictions: 20 pounds Additional Activity Instructions:: Nothing in the vagina for 4-6 weeks. You may return to work/school in 6 weeks. Call your doctor if your incision/area has: Continuous Slow Oozing, Sudden Increased Bleeding, Increased Pain/ Swelling, Increased Redness, Foul Smelling Discharge Call your doctor if you observe: Fever of 101 or Higher, Using more than one pad per hour - for 2 hours Suture Line Care: Avoid Pulling/Pushing, Avoid Pinching/Bending Cleanse incision/area with: Keep Dressing Clean & Dry Additional Instructions: If you experience any of the following, contact your healthcare provider. * Bleeding that soaks a pad every hour for 2 hours * Fever 100.4 or higher * Unrelieved incision or abdominal pain * Swelling, redness, discharge or bleeding from your incision or episiotomy site * Your incision begins to separate * Problems urinating (including inability to urinate or burning while urinating). * Visual changes * Severe headache * Flu-like symptoms * Pain or redness in one of both of your breasts * Pain, warmth, tenderness or swelling in your legs, especially the calf area * Frequent nausea and vomiting * Symptoms of depression or anxiety If you experience any of the following, call 911 or go to the nearest Emergency Room. * Chest pain * Problems breathing * Seizure activity * Partial or complete paralysis of a body part, slurred speech, weakness or drooping of the face, or a sudden inability to walk or hold your balance Allergies/Adverse Reactions: Allergies No Known Allergies Allergy (Verified 09/19/19 08:37) Medications to take at Discharge multivitamin no.47-iron fum 27 mg-folate no.1 1 mg-dha 300 mg capsule 1 cap PO DAILY 04/24/19 Nifedipine [Procardia Xl] 30 mg PO DAILY #6 tab.er.24 09/15/19 Naproxen [Naprosyn] 250 - 500 mg PO Q8H PRN PRN #30 tab 09/21/19 Oxycodone HCl/Acetaminophen [Percocet 5-325] 1 - 2 tablet PO Q6H PRN PRN 7 Days #15 tablet 09/21/19 The following prescriptions were given: Naproxen [Naprosyn] 250 - 500 mg PO Q8H PRN PRN #30 tab PRN Reason: MILD PAIN Transmission Status: Pending to [id number] Oxycodone HCl/Acetaminophen [Percocet 5-325] 1 - 2 tablet PO Q6H PRN PRN 7 Days #15 tablet PRN Reason: Pain Transmission Status: Sent to [id number] Follow-Up: Call to make an appointment with your doctor for an incision check in 1-2 weeks. You will also need a 6 week post- follow up appointment. Test results from this visit will be discussed in further detail at your follow- up appointment, if applicable. Please Follow Up With: Myrna Horton MD - Call to make an appointment for an incision check in 1-2 [phone] When: You will need a post- check in 6 weeks. Primary Care Physician: Care Physician,No Primary [Primary Care Provider] -
[2019-09-22] VITALS (9 sets, daily range): BP systolic 112–149; BP diastolic 66–93; PULSE 73–92; RESP 18; TEMP 36.4–36.9; O2SAT 98
[2019-09-22] MEDS: Acetaminophen 500 MG Tablet 1000 MG PO ×3 (03:17→17:55)
[2019-09-22] MEDS: Naproxen 250 MG Tablet 500 MG PO ×2 (05:42→17:08)
[2019-09-22] MEDS: hydrALAZINE 10 MG Tablet 20 MG PO ×2 (05:43→17:09)
--- NOTE | 2019-09-22 09:10 | PN.OBGYN_ITS ---
Patient Problems: Active and Suspected Problems (Last Reviewed 09/19/19 @ 08:36 by Zandra Ramirez) Preeclampsia, severe (Acute) Preeclampsia (Acute) plan weekly labs, twice weekly nsts, weekly ermias, q 4 week US, home bp monitoring, procardia 30mg started. BMZ given x 2 7/2-3. reviewed preeclampsia precautions recommend 37 week delivery. Subjective: doing well no complaints pain controlled no CP SOB N V ambulating well tolerating po lochia moderate, going well - Physical Exam Vitals/I&O's: Vital Signs Temp Pulse Resp BP Pulse Ox 98.4 F 89 18 143/93 H 98 09/22/19 03:14 09/22/19 07:38 09/22/19 07:38 09/22/19 07:38 09/21/19 14:12 Oxygen Delivery Method Room Air Weight: 260 lb 12.909 oz Body Mass Index (BMI) 49.2 Intake and Output for Last 24 Hours 09/20/19 09/21/19 09/22/19 23:59 23:59 23:59 Intake Total 4124.73 / 4124.73 Output Total 2895 / 3645 750 / 750 Balance 1229.73 / 479.73 -750 / -750 General: Alert, Oriented x3, Cooperative Current Medications Acetaminophen (Tylenol) 1,000 mg PO Q6H [facility] Last Admin: 09/22/19 03:17 Dose: 1,000 mg Documented by: Bisacodyl (Dulcolax) 10 mg RECTAL UD PRN PRN Reason: If no BM Enoxaparin Sodium (Lovenox) 40 mg SC Q12 [facility] Last Admin: 09/21/19 21:21 Dose: 40 mg Documented by: Hydralazine HCl (Apresoline) 20 mg PO TID [facility] Last Admin: 09/22/19 05:43 Dose: 20 mg Documented by: Hydralazine HCl (Apresoline Iv) 10 mg IV Q20M PRN PRN Reason: Elevated BP Hydralazine HCl (Apresoline Iv) 10 mg IV X1 PRN PRN Reason: Elevated BP Hydrocortisone (Hytone) 1 applic TOPICAL TID PRN PRN; Protocol PRN Reason: Discomfort Hydromorphone HCl (Dilaudid Inj) 1 mg IV Q2H PRN PRN PRN Reason: Pain Score 6-10/10 Calcium Gluconate 1 gm/ N/A 10 mls @ 2 mls/min IV X1 PRN PRN Reason: Magnesium Toxicity Calcium Gluconate 1 gm/ N/A 10 mls @ 2 mls/min IV X1 PRN PRN Reason: Magnesium Toxicity Naloxone HCl 4 mg/ Dextrose 504 mls @ 0 mls/hr IV .Q0M PRN; Protocol PRN Reason: Respiratory depression Labetalol HCl (Trandate) 20 mg IV X1 PRN PRN Reason: ELEVATED BLOOD PRESSURE Labetalol HCl (Trandate) 40 mg IV X1 PRN PRN Reason: Elevated BP Labetalol HCl (Trandate) 40 mg IV X1 PRN PRN Reason: Elevated BP Labetalol HCl (Trandate) 80 mg IV X1 PRN PRN Reason: Elevated BP Midazolam HCl (Versed) 2 mg IV X1 PRN PRN Reason: Seizure Activity Midazolam HCl (Versed) 2 mg IV X1 PRN PRN Reason: Seizure Activity Naloxone HCl (Narcan) 0.02 mg IV Q1M PRN PRN Reason: RR <10 and pt unresponsive Naproxen (Naprosyn) 500 mg PO Q8H [facility] Last Admin: 09/22/19 05:42 Dose: 500 mg Documented by: Nifedipine (Procardia Xl) 60 mg PO DAILY [facility] Ondansetron HCl (Zofran) 4 mg IV Q4H PRN PRN PRN Reason: Nausea Oxycodone HCl (Oxyir) 5 - 10 mg PO Q4H PRN PRN PRN Reason: Pain Score 4-10/10 Prochlorperazine Edisylate (Compazine Iv) 10 mg IV Q6H PRN PRN PRN Reason: NAUSEA Senna/Docusate Sodium (Senokot-S, Marilyn-Colace) 0 tablet PO DAILY [facility] Last Admin: 09/21/19 09:59 Dose: 1 tablet Documented by: Simethicone (Mylicon) 80 mg PO PCHS PRN PRN Reason: Indigestion/stomach pain Sodium Chloride () 10 - 40 ml IV X1 PRN PRN Reason: SALINE FLUSH Last Admin: 09/20/19 21:53 Dose: 10 ml Documented by: Sodium Chloride () 5 - 15 ml IV UD PRN PRN Reason: SALINE FLUSH Medical Necessity - Tobacco Use Smoking Status: Never smoker Assessment/Plan All Active Problems (Last Reviewed 09/19/19 @ 08:36 by Zandra Ramirez) Preeclampsia, severe (Acute) Preeclampsia (Acute) Abnormal glucose affecting (Acute) Rh negative status during (Acute) Obesity affecting (Acute) Supervision of high risk , antepartum (Acute) (Acute) Gestational hypertension (Ruled-out) This is a 29 year-old, G 1P0 at 33 weeks gestational age presents with preeclampsia with severe features s/p LTCS magnesium completed continue anti HTN medications and protocol PRN routine postop care rh negative- rhogam PRN encouraged oral pain control
[2019-09-22] MEDS: Senna/Docusate Sodium 1 Tablet PO (10:03)
[2019-09-22] MEDS: Enoxaparin 40 MG/0.4 ML Syringe SC (10:04)
[2019-09-22] MEDS: NIFEdipine 60 MG Tablet PO (10:04)
--- NOTE | 2019-09-25 04:31 | PCM.DC.SUM ---
Discharge Date and Diagnosis Date of Admission: 09/19/19 Date of Discharge: 09/22/19 Hospital Course and Treatment Consultations 09/19/19 13:02 Consult: Anesthesia Routine Comment: Reason For Exam: Labor Summary of Care Provided: The patient is a 29 year old F presented at 33 weeks with preeclampsia with severe features. She then developed elevated liver enzymes so the decision to proceed with primary was made due to being remote from delivery. She had already received Celestone less than a week prior. Magnesium sulfate was started and hypertensive protocol was utilized with multiple doses and the patient was initially refractory until after delivery. Patient was then restarted on antihypertensives after for control. Patient had a routine recovery with a return of bowel and bladder function was ambulating well tolerating p.o. and had adequate control with oral medications. Magnesium sulfate was discontinued after 24 hours patient was discharged to home on antihypertensives - Physical Exam Vitals/I&O's: Vital Signs Temp Pulse Resp BP Pulse Ox 97.6 F L 89 18 140/73 H 98 09/22/19 11:37 09/22/19 17:55 09/22/19 17:55 09/22/19 17:55 09/22/19 09:16 Oxygen Delivery Method Room Air Weight: 260 lb 12.909 oz Body Mass Index (BMI) 49.2 Discharge Diet: No Restrictions Discharge Activity: May Not Drive - for 2 weeks, May not drive while taking narcotic pain medications., May Shower, May Take a Tub Bath - in 7 days May resume sexual activity in: 4-6 weeks Additional Activity Instructions:: Nothing in the vagina for 4-6 weeks. You may return to work/school in 6 weeks. Call your doctor if your incision/area has: Continuous Slow Oozing, Sudden Increased Bleeding, Increased Pain/ Swelling, Increased Redness, Foul Smelling Discharge Call your doctor if you observe: Fever of 101 or Higher, Using more than one pad per hour - for 2 hours Suture Line Care: Avoid Pulling/Pushing, Avoid Pinching/Bending Cleanse incision/area with: Keep Dressing Clean & Dry Home Medications: Medications to take at Discharge multivitamin no.47-iron fum 27 mg-folate no.1 1 mg-dha 300 mg capsule 1 cap PO DAILY 04/24/19 Nifedipine [Procardia Xl] 30 mg PO DAILY #6 tab.er.24 09/15/19 Naproxen [Naprosyn] 250 - 500 mg PO Q8H PRN PRN #30 tab 09/21/19 Oxycodone HCl/Acetaminophen [Percocet 5-325] 1 - 2 tab PO Q6H PRN PRN 7 Days #15 tab 09/21/19 Nifedipine [Procardia Xl] 60 mg PO DAILY #30 tab.er.24 09/22/19 Following Prescrptions Were Given to Patient: Naproxen [Naprosyn] 250 - 500 mg PO Q8H PRN PRN #30 tab PRN Reason: MILD PAIN Transmission Status: Received by [id number] Oxycodone HCl/Acetaminophen [Percocet 5-325] 1 - 2 tab PO Q6H PRN PRN 7 Days #15 tab PRN Reason: Pain Transmission Status: Received by [id number] Nifedipine [Procardia Xl] 60 mg PO DAILY #30 tab.er.24 Transmission Status: Received by [id number] Primary Care Physician: Care Physician,No Primary [Primary Care Provider] - Please Follow Up With: Myrna Horton MD - Call to make an appointment for an incision check in 1-2 [phone] When: You will need a post- check in 6 weeks. Medical Necessity - Tobacco Use Smoking Status: Never smoker Meaningful Use Info Meaningful Use Diagnoses (Choose all that apply): None applicable
== END 2019-09-22 18:15 | disposition home or self-care (01) | DRG 788 ==
LOC: WPOUT 12:18 → WP 12:18
PROVIDERS: Admitting Provider Obstetrics & Gynecology; Referring Provider Obstetrics & Gynecology; Visit Provider Obstetrics & Gynecology
DX: O14.14 Severe pre-eclampsia complicating childbirth (principal); Z3A.33 33 weeks gestation of pregnancy; Z37.0 Single live birth; Z67.91 Unspecified blood type, Rh negative; O69.81X0 Labor and delivery complicated by cord around neck, without compression, not applicable or unspecified; O60.14X0 Preterm labor third trimester with preterm delivery third trimester, not applicable or unspecified; R74.8 Abnormal levels of other serum enzymes; O99.213 Obesity complicating pregnancy, third trimester; E66.9 Obesity, unspecified
CPT/HCPCS: 36415; 59025; 59050; 80053; 82565; 82570; 84156; 84450; 84460; 84550; 85025; 85027; 85610; 85730; 86850; 86870; 86900; 86901; 87635; 99218; G2023; J7120; A4216; G0378; J2405; U0003

== ENCOUNTER 2019-09-28 19:25 | Outpatient (CLI) | payer BC, MEDICAID, SELFPAY ==
[2019-09-26 13:56] VITALS: BMI 49.2
[2019-09-28 19:30] VITALS: BP 143/78; PULSE 92; RESP 16; TEMP 36.4; O2SAT 98
[2019-09-28 19:40] VITALS: BP 139/75
[2019-09-28 19:54] VITALS: BP 145/82
[2019-09-28 20:07] LABS: Absolute Neutrophil Count 6.8 X10^3/uL (2.0-7.7); Basophil# 0.04 X10^3/uL; Basophil% 0.4 % (0-1); Hematocrit 29.2 % (37-47); Hemoglobin 9.6 g/dL (12.0-15.0); Lymphocyte % 19.5 % (19-41); Mean Corp Hgb Conc 32.9 g/dL (32-36); Mean Corpuscular Hgb 29.6 pg (27.0-32.0); Mean Corpuscular Volume 90.1 fL (81-99); Monocyte# 0.78 X10^3/uL; NRBC Flagged by Analyzer 0 % (0-5); Neutrophil % 69.7 % (47-70); Platelet Count 661 K/mm3 (150-450); RBC Distribution Width CV 12.5 % (11.6-14.6); RBC Distribution Width SD 40.7 fl (35.1-43.9); Red Blood Count 3.24 M/mm3 (4.2-5.4); White Blood Count 9.8 K/mm3 (4.4-11.0)
--- NOTE | 2019-09-28 20:09 | NURSING ---
Patient in room 2 currently on Hotel status reporting to nursing that she is now having double vision. This RN in to see patient. Patient sleeping upon arrival awakens easily with care. Alert and oriented. She states she has been having a headache on and off since Wednesday. It starting on the back of her head and is now frontal. She rates it a 3 on a 1-10 pain scale and states it is usually relived upon laying flat. She states it is worse when up and moving. Patient states she attended a this AM and noticed the dble vision while in the car. She now states she is seeing 2 images on the tv in front of her. Serial BP taken 143/78, 139/75, 145/82. Patient states she forgot to take her Procardia this am and felt like she developed a headache 30 minutes after taking her medication yesterday. CBC and CMP drawn. Continue to monitor at this time.
[2019-09-28 20:30] VITALS: BMI 42.5
[2019-09-28 20:30] LABS: ALB/GLOB Ratio 0.7 RATIO (0.9-2.4); AST(SGOT) 10 U/L (15-37); Alanine Aminotransfer ALT/SGPT 20 U/L (13-56); Albumin, Serum 3.1 g/dL (3.2-5.0); Alkaline Phosphatase 95 U/L (45-117); Anion Gap 6 (5-15); BUN 20 mg/dL (7-18); BUN/Creat Ratio 25.1 RATIO (10-20); Calcium,Total 9.1 mg/dL (8.5-10.1); Chloride 110 mmol/L (98-107); EST Glomerular Filtration Rate 90 mL/min (>60); Est Glom Filt Rate - Afr Amer 109 mL/min (>60); Globulin 4.7 g/dL (2.2-4.2); Glucose 81 mg/dL (74-106); Potassium 4.1 mmol/L (3.5-5.1); Protein, Total 7.8 g/dL (6.4-8.2); Sodium Level 141 mmol/L (136-145)
--- NOTE | 2019-09-28 22:28 | NURSING ---
@5950 Patient given discharge instructions and encouraged to go to ER for further evaluation. Patient and significant other have decided to go to ER for evaluation. ER called and given report on patient to Freddy GUPTA. Patient escorted to ER at this time.
--- NOTE | 2019-09-30 03:17 | OB.TRI.PN ---
Progress Notes Date of Service: 09/28/19 Progress Note: Patient seen due to elevated blood pressures. Patient did not take her medication this morning. Blood pressures in the 140s to 150s over 90s. Patient is having some headache and visual changes. Preeclampsia lab work-up is stable or improved. She was also evaluated by the emergency room with a head CT which was reassuring and within normal limits. Procardia was given to the patient to lower her blood pressure and encouraged her to continue taking her medication as an outpatient follow-up in the office next week for blood pressure check viewed preeclampsia precautions Laboratory Studies: Laboratory Tests 09/28/19 09/28/19 Range/Units 19:55 19:55 WBC 9.8 (4.4-11.0) K/mm3 RBC 3.24 L (4.2-5.4) M/mm3 Hgb 9.6 L (12.0-15.0) g/dL Hct 29.2 L (37-47) % MCV 90.1 (81-99) fL MCH 29.6 (27.0-32.0) pg MCHC 32.9 (32-36) g/dL RDW Std Deviation 40.7 (35.1-43.9) fl RDW Coeff of Alex 12.5 (11.6-14.6) % Plt Count 661 H (150-450) K/mm3 MPV 9.0 (6.2-12.0) fl Immature Gran % (Auto) 0.400 (0.0-0.9) % Neut % (Auto) 69.7 (47-70) % Lymph % (Auto) 19.5 (19-41) % [place] % (Auto) 8.0 (0-10) % Eos % (Auto) 2.0 (0-5) % Baso % (Auto) 0.4 (0-1) % Absolute Neuts (auto) 6.8 (2.0-7.7) X10^3/uL Absolute Lymphs (auto) 1.90 (0.83-4.51) X10^3/uL Nucleated RBC % 0 (0-5) % Sodium 141 (136-145) mmol/L Potassium 4.1 (3.5-5.1) mmol/L Chloride 110 H (98-107) mmol/L Carbon Dioxide 25.0 (21.0-32.0) mmol/L Anion Gap 6 (5-15) BUN 20 H (7-18) mg/dL Creatinine 0.80 (0.55-1.02) mg/dL Est GFR (MDRD) Af Amer 109 (>60) mL/min Est GFR (MDRD) Non-Af 90 (>60) mL/min BUN/Creatinine Ratio 25.1 H (10-20) RATIO Glucose 81 (74-106) mg/dL Calcium 9.1 (8.5-10.1) mg/dL Total Bilirubin 0.20 (0.20-1.00) mg/dL AST 10 L (15-37) U/L ALT 20 (13-56) U/L Alkaline Phosphatase 95 (45-117) U/L Total Protein 7.8 (6.4-8.2) g/dL Albumin 3.1 L (3.2-5.0) g/dL Globulin 4.7 H (2.2-4.2) g/dL Albumin/Globulin Ratio 0.7 L (0.9-2.4) RATIO Multi Select Codes - Urinary/Genital Urinary/Genital CPT Codes: No Charge
== END 2019-09-28 21:15 | disposition home or self-care (01) ==
LOC: WPOUT 19:42 → WP 19:43
PROVIDERS: Visit Provider Obstetrics & Gynecology
DX: O26.899 Other specified pregnancy related conditions, unspecified trimester (principal); Z3A.00 Weeks of gestation of pregnancy not specified; R03.0 Elevated blood-pressure reading, without diagnosis of hypertension; R51 Headache
CPT/HCPCS: 36415; 80053; 85025; 99218; G0378

== ENCOUNTER 2019-09-28 21:28 | Emergency (ER) | payer BC, MEDICAID, SELFPAY ==
[2019-09-28 20:30] VITALS: BMI 42.5
[2019-09-28 21:29] VITALS: BP 151/93; PULSE 90; RESP 16; TEMP 36.1; O2SAT 97; BMI 42.5
[2019-09-28 21:43] VITALS: BP 158/97; PULSE 81; RESP 22; O2SAT 99
[2019-09-28 21:44] VITALS: BP 158/97; PULSE 82; O2SAT 98
--- NOTE | 2019-09-28 22:14 | CT_ITS ---
STUDY: CTA HEAD AND NECK WITH CONTRAST REASON FOR EXAM: Female, 29 years old. Headache WITH BLURRED VISION, DELIVERED BABY September VIA , PRE-POST ECLAMPSIA RADIATION DOSAGE (If Supplied By Facility): CTDIvol = ( 28.35 ) mGy, DLP = ( 1515.19 ) mGycm TECHNIQUE: CT angiography was performed with a multi-detector CT scanner. Data acquisition was obtained from the skull base through the vertex following intravenous administration of IV 100mL [id number]-370. MIP images were reconstructed from the axial data set. Post-processing of the angiographic images was performed, with multiplanar reformation and 3D reconstruction. Individualized dose optimization techniques were used for this CT. COMPARISON: No relevant priors. FINDINGS: Normal bilateral petrous carotid arteries. Normal right cavernous carotid artery with a normal supraclinoid bifurcation. Normal left cavernous carotid artery with a normal supraclinoid bifurcation. Normal right A1 segments of the anterior cerebral artery. Normal left A1 segments of the anterior cerebral artery. Normal intact anterior communicating artery (ACOM). Normal bilateral A2 segments of the anterior cerebral arteries. Normal right M1 and M2 segments of the middle cerebral arteries, with a normal M1 bifurcation. Normal left M1 and M2 segments of the middle cerebral arteries, with a normal M1 bifurcation. Normal right posterior communicating artery (PCOM). Normal left posterior communicating artery (PCOM). Normal bilateral vertebral arteries. Normal basilar artery with a normal basilar bifurcation. The visualized bilateral superior cerebellar (SCA) arteries are normal. Normal bilateral P1, P2 and visualized P3 segments of the posterior cerebral arteries. There is no demonstrated aneurysm of the [place]. There is no demonstrated abnormality of the visualized brain. AORTIC ARCH: Normal visualized aortic arch. Normal origins of the brachiocephalic, left common carotid, and left subclavian arteries. RIGHT CAROTID ARTERIES: Normal right common carotid artery (CCA). Normal right common carotid bulb. Normal origin of the right internal carotid (ICA) artery without a hemodynamically significant stenosis. Normal visualized cervical portion of the right internal carotid artery. Normal origin of the right external carotid artery (ECA). LEFT CAROTID ARTERIES: Normal left common carotid artery (CCA). Normal left common carotid bulb. Normal origin of the left internal carotid (ICA) artery without a hemodynamically significant stenosis. Normal visualized cervical portion of the left internal carotid artery. Normal origin of the left external carotid artery (ECA). VERTEBRAL ARTERIES: Normal bilateral vertebral arteries. CT/CTA Head AND Neck W/ Contrast IMPRESSION: Normal CTA Head and neck with contrast. Electronically Signed: Chi Torres MD at 23:23 EDT , Service support ,
[2019-09-28 23:43] VITALS: BP 155/95; PULSE 78; RESP 16; O2SAT 98
[2019-09-28 23:46] LABS: Bacteria 0 SEEN /hpf (None Seen); Mucous, Urine 0 SEEN /hpf (<or=2+); Squamous Epithelial Cells - UA 0 SEEN /hpf (5-10)
[2019-09-28 23:49] LABS: Color, Urine Yellow (Yellow); Glucose, Dipstick Normal (Normal); Ketone-Dipstick Negative (Negative); Leukocyte Esterase-Dipstick 25 /ul (Negative); Nitrite-Dipstick Negative (Negative); Occult Blood-Urine 250 /ul (Negative); Protein-Dipstick Negative (Negative); Urine Bilirubin Dipstick Negative (Negative); Urine Clarity Clear (Clear); Urine Urobilinogen Normal (Normal)
[2019-09-28 23:58] LABS: Red Blood Cells-Urine 10-25 SEEN /hpf (0-5); White Blood Cells 0-5 SEEN /hpf (0-5)
[2019-09-29 00:33] VITALS: BP 155/95; PULSE 87; RESP 20; O2SAT 98
[2019-09-29] MEDS: NIFEdipine 10 MG Capsule 20 MG PO (00:37)
--- NOTE | 2019-09-29 00:38 | ED.DCSUM_ITS ---
History of Present Illness Chief Complaint: Headache Informant: Patient Onset: Days Context: Gradual Onset Timing: Intermittent Narrative: Patient is a 29-year-old female that is recently with complicated by preeclampsia presenting with headache and blurry vision. She currently does not have a headache but she continues have intermittent blurry vision. Is worse when she looks far away. She had an evaluation in labor and delivery and after they cleared her they sent her down to the emergency room for further evaluation from us. Patient denies any history of headaches. She is had a headache since last Wednesday (the day after she delivered). The headache is throbbing in nature and in the back of her her scalp which she has it. She delivered on 09/19/2019 at 33 weeks with due to preeclampsia with severe features. Patient is now on Procardia XL 30 mg daily. She did not have her dose today. Patient denies any weakness or paresthesias. She denies any speech changes. She notes the first day after her epidural she had a headache that was worse when she sat up and better when she laid flat but that part has resolved. She denies any associated neck pain. Significant other in the room states that patient's grandmother has a history of brain aneurysm. He is concerned that this could be affecting her. Past Medical History - Allergies and Home Meds Allergies/Adverse Reactions: Allergies No Known Allergies Allergy (Verified 09/28/19 21:32) Primary Care Physician: James Pulido MD [STAFF PHYSICIAN] - Myrna Horton MD [STAFF PHYSICIAN] - Past Medical History: None Surgical History: - - Section Lives: Spouse/ Significant Other Smoking Status: Never smoker Review of Systems General: Denies: Chills, Fever, Sweats Eyes: Reports: Blurred Vision - bilaterally. Denies: Visual changes - bilaterally, Diplopia ENT: Denies: Bilateral ear pain, Rhinorrhea, Sore throat Cardiovascular: Denies: Chest pain, Palpitations Respiratory: Denies: Dyspnea, Cough, Dyspnea on exertion Gastrointestinal: Denies: Abdominal pain, Nausea, Vomiting, Diarrhea, Melena, Hematochezia Genitourinary: Denies: Dysuria, Hematuria, Frequency Musculoskeletal: Denies: Back pain, Extremity Pain Skin: Denies: Rash, Wounds Neurological: Reports: Headache. Denies: Weakness, Numbness Physical Exam Vital Signs/Narrative: Vital Signs Temp Pulse Resp BP Pulse Ox 09/29/19 00:33 87 20 H 155/95 H 98 09/28/19 23:43 78 16 155/95 H 98 09/28/19 21:44 82 158/97 H 98 09/28/19 21:43 81 22 H 158/97 H 99 09/28/19 21:29 97.0 F L 90 16 151/93 H 97 Inital Vital Signs reviewed: Yes General: Well nourished, Well developed, No Acute Distress Head: Normocephalic, Atraumatic Eyes: Perrl, EOMI, - - No nystagmus, no disconjugate gaze noted ENT: Moist mucous membranes, No rhinorrhea, TM's clear Neck: Supple, Nontender, No lymphadenopathy, - - No nuchal rigidity Cardiovascular: Regular rate, Regular rhythm, No murmurs Respiratory: No distress, CTA bilaterally, Chest nontender Abdomen: Soft, Nontender, Nondistended, Normal bowel sounds Back: Nontender, Normal Inspection Extremities: Nontender, No edema Skin: Normal color, No rash Neurological: Alert, Oriented x3, Cranial nerves II-XII grossly intact, Normal Strength, Normal Sensation, - - Normal coordination Psychological: Normal affect, Normal Mood Diagnostic/Tx/Re-eval Clinical Impression(s) from Imaging Studies Head/Neck CTA 09/28/19 22:14 IMPRESSION: Normal CTA Head and neck with contrast. Electronically Signed: Chi Torrse MD at 23:23 EDT , Service support , Laboratory Data 09/28/19 23:35 Urine Color Yellow Urine Clarity Clear Urine pH 8.0 Ur Specific [place] 1.010 Urine Protein Negative Urine Glucose (UA) Normal Urine Ketones Negative Urine Occult Blood 250 H Urine Nitrite Negative Urine Bilirubin Negative Urine Urobilinogen Normal Ur Leukocyte Esterase 25 H Urine RBC 10-25 SEEN Urine WBC 0-5 SEEN Ur Squamous Epith Cells 0 SEEN Urine Bacteria 0 SEEN Urine Mucus 0 SEEN - Medical Decision Making Patient is evaluated for intermittent episodes of headache and blurry vision si nce her delivery. Her delivery was complicated by preeclampsia with severe features. Her work-up in labor and delivery is reviewed which includes a CBC and CMP. His labs are grossly normal. Urinalysis obtained which does not show any protein or other findings consistent with preeclampsia. Patient is mildly hypertensive in the emergency room and has normal neurologic exam. She does not have any nuchal rigidity or signs consistent with meningitis. CTA of the head and neck obtained to rule out acute intracranial process or aneurysm. It is grossly negative. Patient is actually asymptomatic while in the emergency room. I did discuss the case with her PAPER PATTERN FOLDER as I feel like this is most likely related to her preeclampsia. Patient be given a dose of Procardia in the ER for her mild hypertension. She will follow-up closely with her PAPER PATTERN FOLDER. She is given referral for ophthalmology given the fact that she does have blurry vision. Patient is counseled on signs and symptoms requiring return to the emergency room. Patient verbalizes agreement and understand this plan. Patient discharged home in stable and improved condition. ED Disposition - Plan for ED Patient: Disposition: Home or Assisted Living Diagnosis: Blurry vision, bilateral, headache, Preeclampsia Instructions: ED Blurred Vision, ED Headache Unspecified Referrals: Myrna Horton MD [STAFF PHYSICIAN] - James Pulido MD [STAFF PHYSICIAN] - Additional Instructions: Please take your Procardia as normally prescribed in the morning. Your CT of the head and neck did not show any signs of an aneurysm, bleed or other acute process. I have given you an eye doctor to follow-up with as well for further evaluation of your blurry vision however I suspect it is more related to your preeclampsia.
[2019-09-29 00:51] VITALS: BP 138/89; PULSE 80; RESP 16; O2SAT 98
== END 2019-09-29 00:52 | disposition home or self-care (01) ==
PROVIDERS: Emergency Provider Emergency Medicine
DX: H53.8 Other visual disturbances (principal); R51 Headache; O14.95 Unspecified pre-eclampsia, complicating the puerperium
CPT/HCPCS: 70496; 70498; 81001; 99285; Q9967; A4216

== ENCOUNTER → 2021-11-11 | Outpatient (CLI) | payer MEDICAID, SELFPAY ==
[2021-11-11 15:33] LABS: Absolute Lymphocyte Count 1.81 X10^3/uL (0.83-4.51); Absolute Neutrophil Count 4.3 X10^3/uL (2.0-7.7); Basophil# 0.04 X10^3/uL; Basophil% 0.6 % (0-1); Eosinophil# 0.11 X10^3/uL; Eosinophils% 1.6 % (0-5); Hematocrit 38.4 % (37-47); Hemoglobin 13.1 g/dL (12.0-15.0); Lymphocyte # 1.81 X10^3/ul (0.83-4.51); Lymphocyte % 26.5 % (19-41); Mean Corp Hgb Conc 34.1 g/dL (32-36); Mean Corpuscular Hgb 29.2 pg (27.0-32.0); Mean Corpuscular Volume 85.7 fL (81-99); Mean Platelet Vol. 9.2 fl (6.2-12.0); Monocyte# 0.54 X10^3/uL; Monocyte% 7.9 % (0-10); NRBC Flagged by Analyzer 0 % (0-5); Neutrophil # 4.32 X10^3/uL (2.7-7.7); Neutrophil % 63.3 % (47-70); Platelet Count 414 K/mm3 (150-450); RBC Distribution Width SD 37.2 fl (35.1-43.9); Red Blood Count 4.48 M/mm3 (4.2-5.4); White Blood Count 6.8 K/mm3 (4.4-11.0)
[2021-11-11 16:25] LABS: Vitamin D,25 Hydroxy 27.4 ng/mL
[2021-11-11 16:32] LABS: ALB/GLOB Ratio 0.9 RATIO (0.9-2.4); AST(SGOT) 18 U/L (15-37); Alanine Aminotransfer ALT/SGPT 33 U/L (13-56); Albumin, Serum 3.9 g/dL (3.2-5.0); Alkaline Phosphatase 81 U/L (45-117); Anion Gap 6 (5-15); BUN 10 mg/dL (7-18); BUN/Creat Ratio 14.4 RATIO (10-20); Calcium,Total 9.1 mg/dL (8.5-10.1); Chloride 107 mmol/L (98-107); Cholesterol 181 mg/dL (200); EST Glomerular Filtration Rate 104 mL/min (>60); Est Glom Filt Rate - Afr Amer 126 mL/min (>60); Globulin 4.4 g/dL (2.2-4.2); Glucose 85 mg/dL (74-106); High Density Lipoprotein 40 mg/dL; Potassium 3.7 mmol/L (3.5-5.1); Protein, Total 8.3 g/dL (6.4-8.2); Sodium Level 138 mmol/L (136-145); Thyroid Stim Hormone (TSH) 1.28 uIU/mL (0.358-3.74); Triglycerides 142 mg/dL; Very Low Density Lipoprotein 28 mg/dL (5-40)
== END | disposition home or self-care (01) ==
LOC: BIMLAB 14:14
PROVIDERS: Obstetrics & Gynecology; PCP Internal Medicine; Referring Provider Internal Medicine; Visit Provider Internal Medicine
DX: I10 Essential (primary) hypertension (principal); E66.9 Obesity, unspecified; Z82.49 Family history of ischemic heart disease and other diseases of the circulatory system; Z13.6 Encounter for screening for cardiovascular disorders
CPT/HCPCS: 80053; 80061; 82306; 84443; 85025

== ENCOUNTER → 2022-06-24 | Outpatient (CLI) | payer MEDICAID, SELFPAY ==
[2022-06-24 10:43] LABS: Anion Gap 3 (5-15); BUN 13 mg/dL (7-18); BUN/Creat Ratio 17.7 RATIO (10-20); Chloride 108 mmol/L (98-107); Creatinine, Serum 0.74 mg/dL (0.55-1.02); EST Glomerular Filtration Rate 97 mL/min (>60); Est Glom Filt Rate - Afr Amer 118 mL/min (>60); Glucose 90 mg/dL (74-106); Sodium Level 136 mmol/L (136-145)
[2022-06-24 11:09] LABS: Vitamin D,25 Hydroxy 29.1 ng/mL
== END | disposition home or self-care (01) ==
LOC: BIMLAB 09:27
PROVIDERS: PCP Internal Medicine; Referring Provider Internal Medicine; Visit Provider Internal Medicine
DX: E55.9 Vitamin D deficiency, unspecified (principal); I10 Essential (primary) hypertension
CPT/HCPCS: 36415; 80048; 82306

== ENCOUNTER → 2022-11-12 | Outpatient (CLI) | payer MEDICAID, SELFPAY ==
[2022-11-18 15:08] LABS: HPV APTIMA, High Risk Negative (Negative)
== END | disposition home or self-care (01) ==
LOC: LABSPEC 13:18
PROVIDERS: PCP Internal Medicine; Referring Provider Obstetrics & Gynecology; Visit Provider Obstetrics & Gynecology
DX: Z12.4 Encounter for screening for malignant neoplasm of cervix (principal)
CPT/HCPCS: 87624; 88175; G0145

== ENCOUNTER → 2023-01-14 | Outpatient (CLI) | payer MEDICAID, SELFPAY ==
[2023-01-14 11:17] LABS: Absolute Lymphocyte Count 1.98 X10^3/uL (0.83-4.51); Absolute Neutrophil Count 5.3 X10^3/uL (2.0-7.7); Basophil# 0.06 X10^3/uL; Basophil% 0.7 % (0-1); Eosinophil# 0.11 X10^3/uL; Eosinophils% 1.4 % (0-5); Hematocrit 36.9 % (37-47); Hemoglobin 12.7 g/dL (12.0-15.0); Lymphocyte # 1.98 X10^3/ul (0.83-4.51); Lymphocyte % 24.4 % (19-41); Mean Corp Hgb Conc 34.4 g/dL (32-36); Mean Corpuscular Hgb 29.7 pg (27.0-32.0); Mean Corpuscular Volume 86.4 fL (81-99); Mean Platelet Vol. 9.1 fl (6.2-12.0); Monocyte# 0.64 X10^3/uL; Monocyte% 7.9 % (0-10); NRBC Flagged by Analyzer 0 % (0-5); Neutrophil # 5.32 X10^3/uL (2.7-7.7); Neutrophil % 65.4 % (47-70); Platelet Count 400 K/mm3 (150-450); RBC Distribution Width CV 12.3 % (11.6-14.6); RBC Distribution Width SD 38.9 fl (35.1-43.9); Red Blood Count 4.27 M/mm3 (4.2-5.4); White Blood Count 8.1 K/mm3 (4.4-11.0)
[2023-01-14 11:35] LABS: ALB/GLOB Ratio 0.9 RATIO (0.9-2.4); AST(SGOT) 16 U/L (15-37); Alanine Aminotransfer ALT/SGPT 39 U/L (13-56); Alkaline Phosphatase 73 U/L (45-117); Anion Gap 6 (5-15); BUN 9 mg/dL (7-18); BUN/Creat Ratio 12.5 RATIO (10-20); Calcium,Total 9.2 mg/dL (8.5-10.1); Chloride 107 mmol/L (98-107); Creatinine, Serum 0.72 mg/dL (0.55-1.02); EST Glomerular Filtration Rate 100 mL/min (>60); Est Glom Filt Rate - Afr Amer 121 mL/min (>60); Globulin 4.3 g/dL (2.2-4.2); Glucose 99 mg/dL (74-106); Potassium 3.7 mmol/L (3.5-5.1); Protein, Total 8.3 g/dL (6.4-8.2); Sodium Level 136 mmol/L (136-145)
[2023-01-14 11:36] LABS: Hemoglobin A1c 5.1 % (3.8-5.6)
[2023-01-14 12:26] LABS: HIV - WCH Non-Reactive (Nonreactive); Hepatitis B Surface Antigen Non-Reactive (Nonreactive); Hepatitis C Antibody Non-Reactive (Nonreactive); Rubella IgG Reactive (Nonreactive); Syphilis Antibodies Non-reactive
[2023-01-17 07:07] LABS: Chlamydia By Nucleic Acid AMP Negative (Negative); Gonococcus By Nucleic Acid AMP Negative (Negative)
== END | disposition home or self-care (01) ==
LOC: PAVLAB 10:58
PROVIDERS: PCP Internal Medicine; Referring Provider Advanced Practice Midwife; Visit Provider Advanced Practice Midwife
DX: O09.899 Supervision of other high risk pregnancies, unspecified trimester (principal); Z3A.00 Weeks of gestation of pregnancy not specified
CPT/HCPCS: 36415; 80053; 83036; 85025; 86703; 86762; 86780; 86803; 86850; 86900; 86901; 87340; 87491; 87591

== ENCOUNTER → 2023-02-12 | Outpatient (CLI) | payer MEDICAID, SELFPAY | END | disposition home or self-care (01) | PROVIDERS: PCP Internal Medicine; Visit Provider Registered Nurse | DX: Z34.90 Encounter for supervision of normal pregnancy, unspecified, unspecified trimester (principal) | CPT/HCPCS: 87086; 87088 ==

== ENCOUNTER → 2023-04-09 | Outpatient (CLI) | payer MEDICAID, SELFPAY | END | disposition home or self-care (01) | PROVIDERS: PCP Internal Medicine; Referring Provider Obstetrics & Gynecology; Visit Provider Obstetrics & Gynecology | DX: Z36.9 Encounter for antenatal screening, unspecified (principal) | CPT/HCPCS: 36415 ==

== ENCOUNTER → 2023-06-02 | Outpatient (CLI) | payer MEDICAID, SELFPAY ==
[2023-06-02 11:36] LABS: Absolute Lymphocyte Count 1.66 X10^3/uL (0.83-4.51); Absolute Neutrophil Count 5.8 X10^3/uL (2.0-7.7); Basophil# 0.02 X10^3/uL; Basophil% 0.3 % (0-1); Eosinophil# 0.09 X10^3/uL; Eosinophils% 1.1 % (0-5); Hematocrit 31.2 % (37-47); Hemoglobin 10.8 g/dL (12.0-15.0); Lymphocyte # 1.66 X10^3/ul (0.83-4.51); Lymphocyte % 21.1 % (19-41); Mean Corp Hgb Conc 34.6 g/dL (32-36); Mean Corpuscular Hgb 29.8 pg (27.0-32.0); Monocyte# 0.22 X10^3/uL; Monocyte% 2.8 % (0-10); NRBC Flagged by Analyzer 0 % (0-5); Neutrophil # 5.83 X10^3/uL (2.7-7.7); Neutrophil % 74.1 % (47-70); Platelet Count 315 K/mm3 (150-450); RBC Distribution Width CV 12.7 % (11.6-14.6); RBC Distribution Width SD 39.5 fl (35.1-43.9); Red Blood Count 3.63 M/mm3 (4.2-5.4); White Blood Count 7.9 K/mm3 (4.4-11.0)
[2023-06-02 12:14] LABS: Glucose Challenge Gest 1H 50g 180 mg/dL (70-140)
[2023-06-02 12:41] LABS: HIV - WCH Non-Reactive (Nonreactive); Syphilis Antibodies Non-reactive
== END | disposition home or self-care (01) ==
PROVIDERS: PCP Internal Medicine; Referring Provider Obstetrics & Gynecology; Visit Provider Obstetrics & Gynecology
DX: Z34.92 Encounter for supervision of normal pregnancy, unspecified, second trimester (principal)
CPT/HCPCS: 36415; 82950; 85025; 86703; 86780; 86850; 86900; 86901

== ENCOUNTER 2023-06-30 09:00 | Outpatient (RCR) | payer MEDICAID, SELFPAY | END 2023-07-13 23:59 | LOC: DC 09:00 | PROVIDERS: PCP Internal Medicine; Referring Provider Obstetrics & Gynecology; Visit Provider Obstetrics & Gynecology | DX: O24.419 Gestational diabetes mellitus in pregnancy, unspecified control (principal) | CPT/HCPCS: 97802; 97803 ==

== ENCOUNTER → 2023-07-08 | Outpatient (CLI) | payer MEDICAID, SELFPAY ==
--- NOTE | 2023-07-08 15:50 | US_ITS ---
EXAM: US BIOPHYSICAL PROFILE WITHOUT NON-STRESS TESTING CLINICAL INDICATION: WELL BEING TECHNIQUE: Real-time ultrasound of the maternal pelvis for biophysical profile evaluation with image documentation. COMPARISON: No relevant prior studies available. FINDINGS: BREATHING MOVEMENTS: Present. Score 2/2. GROSS BODY MOVEMENTS: Present. Score 2/2. TONE: Present. Score 2/2. QUALITATIVE AMNIOTIC FLUID VOLUME: TRACE is 15.4 cm. FETUS: There is an intrauterine gestation. HEART RATE: heart rate is 147 bpm. PRESENTATION: The fetus is in the breech position. PLACENTA: Placenta is fundal. OTHER FINDINGS: Biophysical profile score is 8/8. US/Biophysical Prof W/O Non Stres IMPRESSION: Intrauterine gestation with biophysical profile score of 8/8. heart rate is 147 bpm. Electronically Signed: Douglas Jiang MD at 17:08 EDT ,
== END | disposition home or self-care (01) ==
LOC: US 15:48
PROVIDERS: PCP Internal Medicine; Referring Provider Obstetrics & Gynecology; Visit Provider Obstetrics & Gynecology
DX: O24.410 Gestational diabetes mellitus in pregnancy, diet controlled (principal); O99.213 Obesity complicating pregnancy, third trimester; Z3A.33 33 weeks gestation of pregnancy
CPT/HCPCS: 76819

== ENCOUNTER → 2023-07-29 | Outpatient (CLI) | payer MEDICAID, SELFPAY | END | disposition home or self-care (01) | PROVIDERS: PCP Internal Medicine; Visit Provider Obstetrics & Gynecology | DX: O09.90 Supervision of high risk pregnancy, unspecified, unspecified trimester (principal); Z3A.00 Weeks of gestation of pregnancy not specified | CPT/HCPCS: 87077; 87081; 87186 ==

== ENCOUNTER → 2023-08-04 | Outpatient (CLI) | payer MEDICAID, SELFPAY ==
--- NOTE | 2023-08-04 12:22 | US_ITS ---
STUDY: SECOND AND THIRD TRIMESTER OBSTETRICAL ULTRASOUND-Limited REASON FOR EXAM: Female, 33 years old routine survey, obesity LMP: Unknown. TECHNIQUE: Transabdominal TECHNICAL QUALITY: Adequate. PRIOR ULTRASOUND: 07/08/2023 FINDINGS: There is a single intrauterine fetus. The fetus is in a cephalic presentation. There is demonstrated cardiac activity with a heart rate of 150 bpm. There is a normal amniotic fluid volume. The largest amniotic fluid pocket measures 5.5 cm. The amniotic fluid index (TRACE) is 12.7 cm. The placenta is fundal in location. There are Grade 2 placental changes. The cervix was not visualized BIOMETRY: BPD: 8.2 cm: 33 weeks, 0 days HC: 31.5 cm: 35 weeks, 3 days AC: 32.35 cm: 36 weeks, 2 days FL: 6.69 cm: 34 weeks, 3 days age by current US: 35 weeks, 0 days. ALIYAH by current US: 09/08/2023. Estimated weight: 2647 grams, +/- 397 grams, 17 %. US/OB Limited With Biometrics IMPRESSION: Single live intrauterine at 35 weeks, 0 days with ALIYAH of 09/08/2023. Heart rate of 150 bpm. No suspicious sonographic findings Electronically Signed: Brendan Luu MD at 15:15 EDT ,
== END | disposition home or self-care (01) ==
LOC: US 12:20
PROVIDERS: PCP Internal Medicine; Referring Provider Obstetrics & Gynecology; Visit Provider Obstetrics & Gynecology
DX: O99.210 Obesity complicating pregnancy, unspecified trimester (principal); Z3A.00 Weeks of gestation of pregnancy not specified
CPT/HCPCS: 76816

== ENCOUNTER 2023-08-12 05:13 | Inpatient (IN) | payer MEDICAID, SELFPAY ==
[2023-08-12] VITALS (17 sets, daily range): BP systolic 117–140; BP diastolic 59–100; PULSE 56–79; RESP 12–22; TEMP 36.2–37; O2SAT 97–100; BMI 46.3
[2023-08-12] MEDS: Lactated Ringers 1,000 ML 999 ML IV (05:30)
[2023-08-12 05:48] LABS: Absolute Lymphocyte Count 2.01 X10^3/uL (0.83-4.51); Absolute Neutrophil Count 7.2 X10^3/uL (2.0-7.7); Basophil# 0.04 X10^3/uL; Basophil% 0.4 % (0-1); Eosinophil# 0.09 X10^3/uL; Eosinophils% 0.9 % (0-5); Hematocrit 33.5 % (37-47); Hemoglobin 11.2 g/dL (12.0-15.0); Lymphocyte # 2.01 X10^3/ul (0.83-4.51); Lymphocyte % 19.6 % (19-41); Mean Corp Hgb Conc 33.4 g/dL (32-36); Mean Corpuscular Hgb 28.6 pg (27.0-32.0); Mean Corpuscular Volume 85.7 fL (81-99); Mean Platelet Vol. 10.2 fl (6.2-12.0); Monocyte# 0.86 X10^3/uL; Monocyte% 8.4 % (0-10); NRBC Flagged by Analyzer 0 % (0-5); Neutrophil # 7.19 X10^3/uL (2.7-7.7); Neutrophil % 70.3 % (47-70); Platelet Count 361 K/mm3 (150-450); RBC Distribution Width CV 12.9 % (11.6-14.6); RBC Distribution Width SD 39.7 fl (35.1-43.9); Red Blood Count 3.91 M/mm3 (4.2-5.4); White Blood Count 10.2 K/mm3 (4.4-11.0)
[2023-08-12] MEDS: Acetaminophen 500 MG Tablet 1000 MG PO ×4 (05:53→23:14)
[2023-08-12 06:23] LABS: Bedside Glucose 84 mg/dL (74-106)
[2023-08-12] MEDS: Lactated Ringers 1,000 ML 150 ML IV (06:34)
[2023-08-12] MEDS: Cefazolin 2 GM in 0.9% Normal Saline (100mL Bag) 100 ML IV (07:12)
--- NOTE | 2023-08-12 07:51 | FALS_PTH ---
PATIENT: BALDO VASQUEZ LOC: WP U#:[id number] AGE/SX: 33/F ROOM: WP008 RE08/12/[address]: Dr. Myrna Horton MD : 1990 BED: 1 DIS: 08/14/2023 SPEC #: [id number] RECD: 08/12/23 10:54 STATUS: EDWARD RITTER #: [id number] JOSHUA: 08/12/23 07:[address]: Myrna Horton DEPT: SURGICAL PATHOLOGY RECD BY: Billie Gilbert ENTERED: 08/12/23 12:20 SP TYPE: FALL TUBES OTHR DR: Dr. Kay Quintero MD Tissues: Fallopian tube Procedures: Surgery Specimen Level II HEADER OPERATION: Tubal ligation PRE-OP DIAGNOSIS: Repeat section TISSUE SUBMITTED: Bilateral fallopian tubes- stitch in right tube MICROSCOPIC DIAGNOSIS Right fallopian tube, salpingectomy: Complete cross sections of fallopian tube with no pathologic change. Left fallopian tube, salpingectomy: Complete cross sections of fallopian tube with no pathologic change. Benign paratubal cyst. AM: 08/13/2023 MICROSCOPIC DESCRIPTION Slides are reviewed. GROSS DESCRIPTION Received in fixative is one container labeled with the patient's name and designated bilateral fallopian tubes - suture in right tube. The specimen consists of two fallopian tubes with an average length of 6.5 cm and has an average diameter of 0.7 cm. Both fallopian tubes have normal fimbriated ends. No mass lesions are identified. The fimbral end of the left fallopian tube contains a smooth glistening cyst measuring 1.2cm in greatest dimension and containing clear fluid. Spread Cutter sections are submitted in two cassettes as follows: 1 - right fallopian tube, 2 - left tube and cyst. / AM: 08/12/23 TC:5 CPT: 60451
[2023-08-12] MEDS: Oxytocin 15 Units/NS 250ml 15 UNITS/250 ML IV.SOLN 83 UNITS IV (08:50)
[2023-08-12 09:00] LABS: Syphilis Antibodies Non-reactive
--- NOTE | 2023-08-12 09:42 | HP.PCM.OB_ITS ---
HPI - General General Date of Admission: 08/12/23 HPI Narrative BALDO VASQUEZ, is a 33 F who presents for RLTCS and BS Maternal Data Information ALIYAH Calculator Estimated Delivery Date Method Current WG Current Estimate 08/25/23 LMP (Certain) 38w 1d PFSH PFS Medical History (Updated 08/12/23 @ 05:50 by Cheryle Kyle) Uterine anomaly Pre-eclampsia Hypertension Gestational diabetes Supervision of other high-risk Hypertension affecting Home Medications ?Medication ?Instructions ?Recorded ?Last Taken ?Type multivitamin no.47-iron fum 27 1 cap PO DAILY 04/24/19 08/11/23 08:00 History mg-folate no.1 1 mg-dha 300 mg capsule (PNV-DHA) blood sugar diagnostic (Blood #120 ea 06/03/23 Unknown Rx Glucose Test strips) lancets #200 ea 06/03/23 Unknown Rx blood-glucose meter #1 ea 06/28/23 Unknown Rx aspirin 81 mg capsule 81 mg PO DAILY hx preE 08/12/23 08/11/23 08:00 History Allergy/AdvReac Type Severity Reaction Status Date / Time nifedipine (From Procardia) AdvReac Other Verified 08/12/23 06:02 Family History Grandmother Cancer Lung Father Myocardial infarction, Onset Age: 40 Mother Myocardial infarction, Onset Age: 40 Diabetes Grandfather Diabetes Surgical History (Updated 08/12/23 @ 05:50 by Cheryle Kyle) History of delivery Social History adopted: No household members: significant other and children housing: house number of children: 1 current occupational status: employed current occupation: [employer] current occupational exposures/hazards: No pets and animals: Yes (2) pets and animals: dog(s) history of recent travel: No sexually active: Yes Smoking Status: Never smoker Electronic Cigarette Use: not used second hand exposure: No alcohol intake: never substance use type: does not use caffeine: No what type of physical activity do you participate in: walking frequency: daily seatbelt use: always do you feel safe at home: Yes History 2 Elective abortions Hx Para 1 Spontaneous abortions Hx # Term Pregnancies Ectopic pregnancies Hx # Pregnancies 1 Multiple births # of living children 1 Past Pregnancies Del. Date Name GA/Weeks Outcome Route Bth Weight Gen Labor Lgth Anesthesia Del Lo Provider FOB 09/19/19 Damaris 33 live - 3lbs 15oz Female spinal [facility] BRIELLE Martinez Delivery Date: 09/19/19 Last Updated by: Luz Elizalde LTCS pre e with severe features Visit Details Expected Delivery Route/Plan TOLAC vs RLTCS Plans Covid status: [] Flu vaccine: declined Tdap vaccine: [] Rhogam: [] LARC form signed: [] Problem list reviewed and updated with the most current plan of care details and appropriate orders placed. Relevant counseling for the gestational age provided. Continue routine care and follow up unless otherwise noted in visit notes/problem list details OB Flowsheet Initial Weight: Not Recorded Date -?-?-?-?-?-?-?-?-?-?-?-?- EGA Weight BP Urine Prot -?-?-?-?-?-?-?-?-?-?-?-?- Glucose FHR FuHt Pres Dilation -?-?-?-?-?-?-?-?-?-?-?-?- Effaced St Visit Note 01/14/23 -?-?-?-?-?-?-?-?-?-?-?-?- 8w 1d 239 lb 4 oz 129/86 -?-?-?-?-?-?-?-?-?-?-?-?- 144 -?-?-?-?-?-?-?-?-?-?-?-?- kw-CRL cons with dates. Declines NIPT at this time. Severe Pre E last . 02/12/23 -?-?-?-?-?-?-?-?-?-?-?-?- 12w 2d 240 lb 6 oz 126/84 Nega tive -?-?-?-?-?-?-?-?-?-?-?-?- Negative 165 -?-?-?-?-?-?-?-?-?-?-?-?- LC- no vb/crampi ng. declines afp. mfm anatomy scan. starting lda.baseline labs normal. LC- no vb/cramping. declines afp. mfm anatomy scan. starting lda.baseline labs normal. considering pp tubal. 03/09/23 -?-?-?-?-?-?-?-?-?-?-?-?- 15w 6d 238 lb 123/76 Negative -?-?-?-?-?-?-?-?-?-?-?-?- Negative 160 -?-?-?-?-?-?-?-?-?-?-?-?- MH-NO VB or cram ping. Br US to confirm FHT. Denies concerns 04/06/23 -?-?-?-?-?-?-?-?-?-?-?-?- 19w 6d 239 lb 131/86 Negative -?-?-?-?-?-?-?-?-?-?-?-?- Negative 150 -?-?-?-?-?-?-?-?-?-?-?-?- SM- no vb lof go od fm no regular ctx had US today, prelim discussion about , will likely plan on RLTCS. 05/06/23 -?-?-?-?-?-?-?-?-?-?-?-?- 24w 1d 238 lb 120/81 -?-?-?-?-?-?-?-?-?-?-?-?- 150 -?-?-?-?-?-?-?-?-?-?-?-?- SM- no vb lof go od fm no reuglar ctx 06/02/23 -?-?-?-?-?-?-?-?-?-?-?-?- 28w 0d 238 lb 6 oz 119/82 Nega tive -?-?-?-?-?-?-?-?-?-?-?-?- Negative 147 30 -?-?-?-?-?-?-?-?-?-?-?-?- JV- no lof, vagi nal bleeding, or cramping. Glucola pending. needs to come back after she does her type and screen. 04/03/24 -?-?-?-?-?-?-?-?-?-?-?-?- 30w 0d 240 lb 6 oz 130/82 Nega tive -?-?-?-?-?-?-?-?-?-?-?-?- Negative 155 30 -?-?-?-?-?-?-?-?-?-?-?-?- LC- no vb/ctx/lo f. good fm. gestational diabetes- had appt with mainframe applications developer yesterday. FS 07/25 out of parameter- will monitor next visit to discuss medication if needed. 07/01/23 -?-?-?-?-?-?-?-?-?-?-?-?- 32w 1d 241 lb 123/85 Negative -?-?-?-?-?-?-?-?-?-?-?-?- Negative 140 -?-?-?-?-?-?-?-?-?-?-?-?- SM- no vb lof go od fm n oregular ctx BS controlled 07/15/23 -?-?-?-?-?-?-?-?-?-?-?-?- 34w 1d 243 lb 120/81 -?-?-?-?-?-?-?-?-?-?-?-?- 140 33 -?-?-?-?-?-?-?-?-?-?-?-?- SM- no vb lof go od fm no regular ctx BS congtrolled with diet 07/22/23 -?-?-?-?-?-?-?-?-?-?-?-?- 35w 1d 245 lb 8 oz 112/76 Nega tive -?-?-?-?-?-?-?-?-?-?-?-?- Negative 145 -?-?-?-?-?-?-?-?-?-?-?-?- KW- NST only. Re active. growth US next week 07/29/23 -?-?-?-?-?-?-?-?-?-?-?-?- 36w 1d 247 lb 116/79 Negative -?-?-?-?-?-?-?-?-?-?-?-?- Negative 140 -?-?-?-?-?-?-?-?-?-?-?-?- SM- no vb lof go od fm no regular ctx, unstable lie. schedule csection 08/05/23 -?-?-?-?-?-?-?-?-?-?-?-?- 37w 1d 246 lb 2 oz 117/79 Trac e -?-?-?-?-?-?--?-?-?-?-?-?- Negative 140 -?-?-?-?-?-?-?-?-?-?-?-?- MH-NSTonly react joseph 08/11/23 -?-?-?-?-?-?-?-?-?-?-?-?- 38w 0d 244 lb 6 oz 121/82 Nega tive -?-?-?-?-?-?-?-?-?-?-?-?- Negative 130 -?-?-?-?-?-?-?-?-?-?-?-?- JV- nst reactive . plan is for repeat section with Bilateral salpin gectomy. Title 19 was signed back on 02/12/23 NST FHR Rate Baby A Baseline: 130 ROS Constitutional Constitutional: Reports systems reviewed and no addt'l complaints, except as documented Eyes Eyes: Denies change in vision ENT HEENT: Reports systems reviewed and no addt'l complaints, except as documented; Denies headache(s) Cardiovascular Cardiovascular: Reports systems reviewed and no addt'l complaints, except as documented; Denies chest pain or dyspnea Respiratory/Chest Respiratory/Chest: Reports systems reviewed and no addt'l complaints, except as documented Gastrointestinal Gastrointestinal: Reports systems reviewed and no addt'l complaints, except as documented; Denies abdominal pain Genitourinary Genitourinary: Reports systems reviewed and no addt'l complaints, except as documented, contractions Details: present (irregular) and movement Details: present; Denies dysuria or genital lesions Musculoskeletal Musculoskeletal: Reports systems reviewed and no addt'l complaints, except as documented Neurologic Neurologic: Reports systems reviewed and no addt'l complaints, except as documented Endocrine Endocrinology: Reports systems reviewed and no addt'l complaints, except as documented Vital Signs Vital Signs Vital Signs: 08/12/23 05:24 08/12/23 05:24 08/12/23 05:24 Temperature Temperature Source Pulse Rate 71 Respiratory Rate Respiratory Pattern Blood Pressure 140/80 H Blood Pressure Mean BP Systolic 140 BP Diastolic 80 Blood Pressure Source Blood Pressure Position Blood Pressure Location Baseline BP Pulse Ox 99 Oxygen Delivery Method 08/12/23 05:24 08/12/23 05:24 08/12/23 05:24 Temperature 98.6 F Temperature Source Pulse Rate Respiratory Rate 16 Respiratory Pattern Blood Pressure Blood Pressure Mean BP Systolic BP Diastolic Blood Pressure Source Blood Pressure Position Blood Pressure Location Baseline BP Pulse Ox 98 Oxygen Delivery Method 08/12/23 05:24 08/12/23 06:46 08/12/23 08:50 Temperature 98.6 F Temperature Source Temporal Temporal Temporal Pulse Rate 72 Respiratory Rate 22 H Respiratory Pattern Blood Pressure 140/80 H Blood Pressure Mean 100 BP Systolic BP Diastolic Blood Pressure Source Monitor Blood Pressure Position Semi-Fowlers Blood Pressure Location Right Arm Baseline BP Pulse Ox 99 Oxygen Delivery Method Room Air 08/12/23 08:50 08/12/23 09:05 08/12/23 09:05 Temperature 97.7 F L 97.9 F Temperature Source Temporal Temporal Temporal Pulse Rate 61 56 L Respiratory Rate 12 14 Respiratory Pattern Normal Blood Pressure 128/73 H 124/71 H Blood Pressure Mean 91 88 BP Systolic BP Diastolic Blood Pressure Source Monitor Monitor Blood Pressure Position Sitting Sitting Blood Pressure Location Left Arm Left Arm Baseline BP 140/80 140/80 Pulse Ox 99 100 Oxygen Delivery Method Room Air Room Air 08/12/23 09:20 08/12/23 09:20 08/12/23 09:35 Temperature 97.1 F L Temperature Source Temporal Temporal Temporal Pulse Rate 61 Respiratory Rate 16 Respiratory Pattern Blood Pressure 132/84 H Blood Pressure Mean 100 BP Systolic BP Diastolic Blood Pressure Source Monitor Blood Pressure Position Sitting Blood Pressure Location Left Arm Baseline BP 140/80 Pulse Ox 100 Oxygen Delivery Method Room Air 08/12/23 09:35 Temperature 97.2 F L Temperature Source Temporal Pulse Rate 57 L Respiratory Rate 14 Respiratory Pattern Blood Pressure 134/80 H Blood Pressure Mean 98 BP Systolic BP Diastolic Blood Pressure Source Monitor Blood Pressure Position Sitting Blood Pressure Location Left Arm Baseline BP 140/80 Pulse Ox 100 Oxygen Delivery Method Room Air Weight Weight: 245 lb 5.992 oz Body Mass Index (BMI) 46.3 Physical Exam Const alert, oriented x3, no apparent distress and healthy appearing HEENT normocephalic and moist oral mucous membranes Head and Scalp: atraumatic Neck full ROM, no lymphadenopathy, supple and thyroid normal General: trachea midline Lymph Lymphatic: no lymphadenopathy noted Chest inspection of chest normal Resp normal respiratory effort Cardio regular rate GI normal to inspection, nondistended, normoactive bowel sounds, soft to palpation and non-tender Inspection: gravid external exam normal Manual OB Exam: estimated gestational size appropriate, presentation cephalic, dilated, effaced and station Extremity normal to inspection General Extremity: Negative for edema Skin no rashes or lesions noted Neuro no focal motor deficits and deep tendon reflexes 2+ bilaterally Motor Exam: strength 5/5 throughout and clonus absent Psych mental status grossly normal Labs Labs Labs: Blood Type B NEGATIVE Antibody Screen NEGATIVE Hct 33.5 % (37-47) L Hgb 11.2 g/dL (12.0-15.0) L Pap Smear Negative Obstetrics Ultrasound Syphilis Total Ab Non-reactive Rubella IgG Antibody Reactive (Nonreactive) Hep Bs Antigen Non-Reactive (Nonreactive) Hepatitis C Antibody Non-Reactive (Nonreactive) Chlamydia DNA (JSEE) Negative (Negative) N.gonorrhoeae DNA (JESE) Negative (Negative) HIV 1&2 Antibody Non-Reactive (Nonreactive) Glucose 1 Hr 50 gm 180 mg/dL (70-140) H Gest Glucose Tolerance MG/DL Rhogam given: No Miscellaneous Test Assessment & Plan (1) GBS (group B Streptococcus carrier), +RV culture, currently : COMMENT: PCN in labor (2) Uterine fibroid: COMMENT: 35.6mmx 14.3mm fibroid. (3) Gestational diabetes: QUALIFIERS: Gestational diabetes mellitus control: diet-controlled Trimester: third trimester Qualified Code(s): O24.410 - Gestational diabetes mellitus in , diet controlled COMMENT: diet controlled. BS testing fasting & 2 HR PP, nutrition consult (4) Rh negative status during : QUALIFIERS: Trimester: second trimester Qualified Code(s): O26.892 - Other specified related conditions, second trimester; Z67.91 - Unspecified blood type, Rh negative COMMENT: B neg- Rhogam PRN and at 28 weeks (5) Hypertension: QUALIFIERS: Hypertension type: unspecified Qualified Code(s): I10 - Essential (primary) hypertension COMMENT: weekly bpp and nst 32-38, delivery 38. not currently medicated. stopped Lisinopril when she found out she was . Had severe headaches while on Procardia (6) Vitamin D deficiency: COMMENT: OTC Vit D 1000u daily (7) History of severe pre-eclampsia: COMMENT: baseline pre e labs/nl, recommended ASA at 12 weeks (8) History of delivery, currently : COMMENT: considering TOLAC vs RLTCS, RLTCS scheduled for 08/11 @ 7:10 with SM (9) : QUALIFIERS: Weeks of gestation: 38 weeks Qualified Code(s): Z3A.38 - 38 weeks gestation of COMMENT: NIPT and carrier screening declined, neg AFP. nl anatomy (10) Supervision of high risk , antepartum: COMMENT: PRR ALIYAH 08/25/23 boy DARCIE Ocampo, Juan (11) Obesity affecting : QUALIFIERS: Trimester: second trimester Qualified Code(s): O99.212 - Obesity complicating , second trimester COMMENT: BMI>40. A1C nl- encouraged healthy weight gain, plan testing after 32 weeks, growth q 4 weeks (30%) PLAN: Plan plan RLTCS and BS
--- NOTE | 2023-08-12 09:45 | OP.PCM_ITS ---
Assessment & Plan (1) Rh negative status during : QUALIFIERS: Trimester: second trimester Qualified Code(s): O26.892 - Other specified related conditions, second trimester; Z67.91 - Unspecified blood type, Rh negative COMMENT: B neg- Rhogam PRN and at 28 weeks (2) Hypertension: QUALIFIERS: Hypertension type: unspecified Qualified Code(s): I10 - Essential (primary) hypertension COMMENT: weekly bpp and nst 32-38, delivery 38. not currently medicated. stopped Lisinopril when she found out she was . Had severe headaches while on Procardia (3) Vitamin D deficiency: COMMENT: OTC Vit D 1000u daily (4) History of severe pre-eclampsia: COMMENT: baseline pre e labs/nl, recommended ASA at 12 weeks (5) History of delivery, currently : COMMENT: considering TOLAC vs RLTCS, RLTCS scheduled for 08/11 @ 7:10 with SM (6) Gestational diabetes: QUALIFIERS: Gestational diabetes mellitus control: diet-controlled Trimester: third trimester Qualified Code(s): O24.410 - Gestational diabetes mellitus in , diet controlled COMMENT: diet controlled. BS testing fasting & 2 HR PP, nutrition consult (7) Uterine fibroid: COMMENT: 35.6mmx 14.3mm fibroid. (8) GBS (group B Streptococcus carrier), +RV culture, currently : COMMENT: PCN in labor (9) : QUALIFIERS: Weeks of gestation: 38 weeks Qualified Code(s): Z3A.38 - 38 weeks gestation of COMMENT: NIPT and carrier screening declined, neg AFP. nl anatomy (10) Supervision of high risk , antepartum: COMMENT: PRR ALIYAH 08/25/23 boy PC Damaris, Juan (11) Obesity affecting : QUALIFIERS: Trimester: second trimester Qualified Code(s): O99.212 - Obesity complicating , second trimester COMMENT: BMI>40. A1C nl- encouraged healthy weight gain, plan testing after 32 weeks, growth q 4 weeks (30%) (12) delivery delivered: COMMENT: RLTCS BS boy GDM CHTN (13) Status post bilateral salpingectomy: Maternal Data Information ALIYAH Calculator Estimated Delivery Date Method Current WG Current Estimate 08/25/23 LMP (Certain) 38w 1d Final ALIYAH Source: LMP Details Operative Information Date of Procedure: 08/12/23 Pre-Operative Diagnosis: Previous Post-Operative Diagnosis: same Indications for : Repeat Elective Indications Narrative: Surgeon: Myrna Horton MD Classification: Scheduled Procedure Type: low transverse monitoring manager #1: Lorin Smith Type of Anesthesia: Spinal Special Medications: none Antibiotic Given: Ancef 2 grams IV x1 Drain: Gomez to straight drain Estimated Blood Loss: 800 Fluids Replaced: crystalloid Procedure Start Time: 07:39 Procedure Stop Time: 08:30 Findings Description of Procedure: The patient is a [ ] presented for [repeat] . Spinal anesthesia was placed without difficulty. Gomez catheter was placed. The patient was placed in the dorsal supine position with leftward tilt. Patient was prepped and draped in the normal sterile fashion. Pfannenstiel skin incision was made with the scalpel and carried through to the underlying layer of fascia with the scalpel. Fascia was nicked in the midline and the incision extended laterally. The rectus bellies were dissected off superiorly and inferiorly with out complication both sharply and bluntly. The peritoneum was entered digitally. The incision was stretched and a low transverse uterine incision was made with the scalpel. The infant's head was delivered atraumatically followed by the anterior and posterior shoulders without complication the rest of the delivered. The cord was clamped and cut and the was handed off to awaiting nurse. The placenta was delivered spontaneously immediately following and was noted to be intact and have a three-vessel cord. The uterus was exteriorized cleared of all clots and debris, and the incision was closed in a double layer closure using #1 Monocryl. The ovaries and fallopian tubes were noted to be within normal limits. The uterus was returned to the maternal abdomen and gutters were cleared of all clots and debris. The peritoneum was closed with 3-0 Monocryl in a running fashion. Gloves were changed prior to fascial closure. Fascia was closed with 0 PDS in a running fashion. Subcutaneous tissue was copiously irrigated and the skin was closed with 3-0 Monocryl in a subcuticular fashion. Mepilex dressing was applied without complication. Patient was taken to recovery in stable condition. It was discussed with the patient that based on the clinical information obtained during this encounter, combined with her history, at this time I would recommend [ ] for future deliveries if further pregnancies are desired. Amniotic Membrane Rupture Type: Artificial Amniotic Fluid Description: Clear Placenta Disposition: [facility] Cord Vessel Description: 3 Vessels Delayed Cord Clamping: Yes Complications Risks of Surgery Discussed w/Patient: Bleeding, Infection, Need for Future C- Sections and Injury to surrounding structure(s) including bowel and bladder Vaginal Delivery Complication Complications: None Admit VTE Documentation VTE Present on Admission: No VTE Mechan Device Prophylaxis: SCD's Procedures Urinary/Genital [id number]: 66043 delivery+PP Care([facility])
--- NOTE | 2023-08-12 09:47 | DCINST_ITS ---
Discharge Instructions Diet Discharge Diet: No restrictions Activity Discharge Activity: May Not Drive (for 2 weeks or while taking narcotic pain medications.), May Shower and May Take a Tub Bath (in 7 days) May shower in (days): 0 May resume sexual activity in: 4-6 weeks Weight Bearing Status: Full weight bearing Lifting Restrictions: 20 pounds Dressing / Incision Call your doctor if your incision/area has: Continuous Slow Oozing, Sudden Increased Bleeding, Increased Pain/ Swelling, Increased Redness and Foul Smelling Discharge Call your doctor if you observe: Fever of 101 or Higher and Using more than 1 pad per hour (for 2 hours) Suture Line Care: Avoid Pulling/Pushing and Avoid Pinching/Bending Cleanse incision/area with: Soap & Water and Keep Dressing Clean & Dry Follow Up Care Please Follow Up With: Myrna Horton MD When: Call [phone] to make an appointment for an incision check in 1-2 weeks. Test Results: Test results from this visit will be discussed in further detail at your follow- up appointment, if applicable. Discharge Plan Admission Admit Date/Time: 08/12/23 05:13 Attending Provider: Myrna Horton Primary Care Provider: Kay Quintero Discharge Orders/Prescriptions Prescriptions: No Action PNV-DHA 27 mg iron-1 mg -300 mg capsule 1 cap PO DAILY aspirin 81 mg capsule 81 mg PO DAILY (DME) Blood Glucose Test Strip See Rx Instructions .MEDSUPPLY Qty: 120 5RF Rx Instructions: As directed-fasting & 2 hr post meals (DME) lancets Misc See Rx Instructions .MEDSUPPLY Qty: 200 5RF Rx Instructions: As directed-fasting & 2 hr post meals (DME) blood-glucose meter Misc See Rx Instructions .MEDSUPPLY Qty: 1 0RF Rx Instructions: As directed- Test fasting and 2 hours after meals Referrals / Follow Up: Kay Quintero MD [Primary Care Provider] - Disposition Disposition (needs filled in before D/C Order can be placed): Home, Self Care
[2023-08-12] MEDS: Ketorolac 30 MG/ML Syringe IV ×3 (09:55→21:36)
[2023-08-12 11:15] LABS: Bedside Glucose 108 mg/dL (74-106)
[2023-08-12] MEDS: Lactated Ringers 1,000 ML 500 ML IV (12:00)
[2023-08-12] MEDS: Lactated Ringers 1,000 ML 100 ML IV (14:02)
[2023-08-12] MEDS: 0.9% Saline Lock 10 ML Syringe IV ×2 (15:52→21:36)
--- NOTE | 2023-08-12 18:54 | NURSING ---
voided large amount but not in hat
[2023-08-12] MEDS: Enoxaparin 40 MG/0.4 ML Syringe SC (21:37)
[2023-08-13 04:57] VITALS: BP 128/73; PULSE 69; RESP 14; TEMP 36.2; O2SAT 98
[2023-08-13] MEDS: 0.9% Saline Lock 10 ML Syringe IV (04:57)
[2023-08-13] MEDS: Ketorolac 30 MG/ML Syringe IV (04:57)
[2023-08-13] MEDS: Acetaminophen 500 MG Tablet 1000 MG PO ×3 (05:18→19:02)
[2023-08-13 05:31] LABS: Bedside Glucose 94 mg/dL (74-106)
[2023-08-13 05:34] LABS: Hematocrit 28.5 % (37-47); Hemoglobin 9.4 g/dL (12.0-15.0); Mean Corpuscular Hgb 28.6 pg (27.0-32.0); Mean Corpuscular Volume 86.6 fL (81-99); Mean Platelet Vol. 10.2 fl (6.2-12.0); Platelet Count 310 K/mm3 (150-450); RBC Distribution Width CV 12.9 % (11.6-14.6); RBC Distribution Width SD 40.3 fl (35.1-43.9); Red Blood Count 3.29 M/mm3 (4.2-5.4); White Blood Count 9.2 K/mm3 (4.4-11.0)
--- NOTE | 2023-08-13 08:04 | PCM.PN.OB ---
Subjective Subjective Patient doing well without complaints. Tolerating PO. Ambulating and voiding without difficulty. feeding well. Denies chest pain, shortness of breath, calf pain/swelling, fevers, chills, lightheadedness. Objective Data Objective Data Vital Signs: Vital Signs Temp Pulse Resp BP Pulse Ox O2 Del Method 97.1 F L 69 14 128/73 H 98 Room Air 08/13/23 04:57 08/13/23 04:57 08/13/23 04:57 08/13/23 04:57 08/13/23 04:57 08/13/23 04:57 Oxygen Delivery Method Room Air Weight: 245 lb 5.992 oz Body Mass Index (BMI) 46.3 Intake & Output: Intake and Output for Last 24 Hours 08/11/23 08/12/23 08/13/23 23:59 23:59 23:59 Intake Total 3309.17 / 3309.17 Output Total 2049 / 2049 Balance 1259.17 / 1259.17 Lab / Micro Data 08/13/23 05:05 Labs: Laboratory Results - last 24 hr 08/12/23 05:30: Syphilis Total Ab Non-reactive 08/12/23 10:57: POC Glucose 108 H 08/13/23 05:03: POC Glucose 94 08/13/23 05:05: WBC 9.2, RBC 3.29 L, Hgb 9.4 L, Hct 28.5 L, MCV 86.6, MCH 28.6, MCHC 33.0, RDW Std Deviation 40.3, RDW Coeff of Alex 12.9, Plt Count 310, MPV 10.2 ROS Constitutional Constitutional: Reports systems reviewed and no addt'l complaints, except as documented Cardiovascular Cardiovascular: Reports systems reviewed and no addt'l complaints, except as documented Respiratory/Chest Respiratory/Chest: Reports systems reviewed and no addt'l complaints, except as documented Gastrointestinal Gastrointestinal: Reports systems reviewed and no addt'l complaints, except as documented Physical Exam Const alert, oriented x3 and no apparent distress HEENT Head and Scalp: atraumatic Resp normal respiratory effort GI soft to palpation and non-tender Inspection: incision intact, healing well and drainage (none) Bimanual Exam - Vag & Uterus: uterus non-tender Uterus Palpation: uterus fundus firm (below Umbilicus) Assessment & Plan (1) delivery delivered: COMMENT: RLTCS BS boy GDM CHTN (2) Gestational diabetes: QUALIFIERS: Gestational diabetes mellitus control: diet-controlled Trimester: third trimester Qualified Code(s): O24.410 - Gestational diabetes mellitus in , diet controlled COMMENT: diet controlled. BS testing fasting & 2 HR PP, nutrition consult (3) Hypertension: QUALIFIERS: Hypertension type: unspecified Qualified Code(s): I10 - Essential (primary) hypertension COMMENT: weekly bpp and nst 32-38, delivery 38. not currently medicated. stopped Lisinopril when she found out she was . Had severe headaches while on Procardia PLAN: Plan s/p LTCS PPD # 1 1. routine post care 2. breast feeding- support given 3. rh positive 4. rubella immune
[2023-08-13 09:00] VITALS: BP 132/88; PULSE 70; RESP 18; TEMP 36.2; O2SAT 98
[2023-08-13] MEDS: Senna/Docusate Sodium 1 Tablet PO (10:39)
[2023-08-13] MEDS: Enoxaparin 40 MG/0.4 ML Syringe SC ×2 (10:40→21:33)
[2023-08-13] MEDS: Naproxen 500 MG Tablet PO ×2 (13:12→21:33)
[2023-08-13 14:30] VITALS: BP 136/85; PULSE 82; RESP 16; TEMP 36.1; O2SAT 98
[2023-08-13 20:46] VITALS: BP 143/76; PULSE 79; RESP 16; TEMP 36.2; O2SAT 99
[2023-08-14] MEDS: Acetaminophen 500 MG Tablet 1000 MG PO ×3 (00:12→12:38)
[2023-08-14 02:24] VITALS: BP 124/71; PULSE 71; RESP 16; TEMP 36.3; O2SAT 99
[2023-08-14] MEDS: Naproxen 500 MG Tablet PO ×2 (05:26→13:50)
--- NOTE | 2023-08-14 07:21 | PCM.PN.OB ---
Subjective Subjective Patient doing well without complaints. Tolerating PO. Ambulating and voiding without difficulty. feeding well. Denies chest pain, shortness of breath, calf pain/swelling, fevers, chills, lightheadedness. Objective Data Objective Data Vital Signs: Vital Signs Temp Pulse Resp BP Pulse Ox O2 Del Method 97.3 F L 71 16 124/71 H 99 Room Air 08/14/23 02:24 08/14/23 02:24 08/14/23 02:24 08/14/23 02:24 08/14/23 02:24 08/14/23 02:24 Oxygen Delivery Method Room Air Weight: 245 lb 5.992 oz Body Mass Index (BMI) 46.3 Intake & Output: Intake and Output for Last 24 Hours 08/12/23 08/13/23 08/14/23 23:59 23:59 23:59 Intake Total 3309.17 / 3309.17 Output Total 2049 / 2049 Balance 1259.17 / 1259.17 Lab / Micro Data 08/13/23 05:05 ROS Constitutional Constitutional: Reports systems reviewed and no addt'l complaints, except as documented Cardiovascular Cardiovascular: Reports systems reviewed and no addt'l complaints, except as documented Respiratory/Chest Respiratory/Chest: Reports systems reviewed and no addt'l complaints, except as documented Gastrointestinal Gastrointestinal: Reports systems reviewed and no addt'l complaints, except as documented Physical Exam Const alert, oriented x3 and no apparent distress HEENT Head and Scalp: atraumatic Resp normal respiratory effort GI soft to palpation and non-tender Inspection: incision intact, healing well and drainage (none) Bimanual Exam - Vag & Uterus: uterus non-tender Uterus Palpation: uterus fundus firm (below Umbilicus) Assessment & Plan (1) delivery delivered: COMMENT: RLTCS BS boy GDM CHTN (2) Gestational diabetes: QUALIFIERS: Gestational diabetes mellitus control: diet-controlled Trimester: third trimester Qualified Code(s): O24.410 - Gestational diabetes mellitus in , diet controlled COMMENT: diet controlled. BS testing fasting & 2 HR PP, nutrition consult (3) Hypertension: QUALIFIERS: Hypertension type: unspecified Qualified Code(s): I10 - Essential (primary) hypertension COMMENT: weekly bpp and nst 32-38, delivery 38. not currently medicated. stopped Lisinopril when she found out she was . Had severe headaches while on Procardia PLAN: Plan s/p LTCS PPD # 2 1. routine post care 2. breast feeding- support given 3. rh positive 4. rubella immune
[2023-08-14 09:11] VITALS: BP 127/74; PULSE 75; RESP 16; TEMP 36.2; O2SAT 98
[2023-08-14] MEDS: Enoxaparin 40 MG/0.4 ML Syringe SC (10:54)
[2023-08-14 13:50] VITALS: BP 138/88; PULSE 76; RESP 16; TEMP 36.1; O2SAT 98
== END 2023-08-14 15:30 | disposition home or self-care (01) | DRG 539 ==
PROVIDERS: Admitting Provider Obstetrics & Gynecology; PCP Internal Medicine; Referring Provider Obstetrics & Gynecology; Visit Provider Obstetrics & Gynecology
PROC: 10D00Z1 Extraction of Products of Conception, Low, Open Approach (ICD-10-PCS; CPT 59514; principal; 2023-08-12 07:00)
DX: O34.211 Maternal care for low transverse scar from previous cesarean delivery (principal); O10.92 Unspecified pre-existing hypertension complicating childbirth; E55.9 Vitamin D deficiency, unspecified; O24.420 Gestational diabetes mellitus in childbirth, diet controlled; O99.214 Obesity complicating childbirth; Z37.0 Single live birth; O99.824 Streptococcus B carrier state complicating childbirth; O26.893 Other specified pregnancy related conditions, third trimester; Z67.21 Type B blood, Rh negative; O99.284 Endocrine, nutritional and metabolic diseases complicating childbirth; O34.13 Maternal care for benign tumor of corpus uteri, third trimester; D25.9 Leiomyoma of uterus, unspecified; O34.83 Maternal care for other abnormalities of pelvic organs, third trimester; O99.893 Other specified diseases and conditions complicating puerperium; N83.8 Other noninflammatory disorders of ovary, fallopian tube and broad ligament; Z3A.38 38 weeks gestation of pregnancy; Z79.82 Long term (current) use of aspirin; Z87.59 Personal history of other complications of pregnancy, childbirth and the puerperium
CPT/HCPCS: 59025; 59050; 82962; 85025; 85027; 86780; 86850; 86900; 86901; 88302; 99221; J7120; A4216; G0378; J2405

== ENCOUNTER → 2024-06-30 | Outpatient (CLI) | payer MEDICAID, SELFPAY ==
[2024-06-30 12:38] LABS: Absolute Lymphocyte Count 1.41 X10^3/uL (0.83-4.51); Basophil# 0.07 X10^3/uL; Basophil% 0.9 % (0-1); Eosinophil# 0.37 X10^3/uL; Hematocrit 36.9 % (37-47); Hemoglobin 12.6 g/dL (12.0-15.0); Lymphocyte # 1.41 X10^3/ul (0.83-4.51); Mean Corp Hgb Conc 34.1 g/dL (32-36); Mean Corpuscular Hgb 28.1 pg (27.0-32.0); Mean Corpuscular Volume 82.4 fL (81-99); Mean Platelet Vol. 9.1 fl (6.2-12.0); Monocyte# 0.53 X10^3/uL; Monocyte% 7.2 % (0-10); NRBC Flagged by Analyzer 0 % (0-5); Neutrophil % 67.5 % (47-70); Platelet Count 372 K/mm3 (150-450); RBC Distribution Width CV 12.1 % (11.6-14.6); RBC Distribution Width SD 36.5 fl (35.1-43.9); Red Blood Count 4.48 M/mm3 (4.2-5.4); White Blood Count 7.4 K/mm3 (4.4-11.0)
[2024-06-30 13:37] LABS: ALB/GLOB Ratio 1.1 RATIO (0.9-2.4); AST(SGOT) 22 U/L (<=31); Alanine Aminotransfer ALT/SGPT 25 U/L (<=34); Albumin, Serum 4.2 g/dL (3.5-5.0); Alkaline Phosphatase 103 U/L (35-104); Anion Gap 12 (5-15); BUN 13 mg/dL (4-19); BUN/Creat Ratio 17.5 RATIO (10-20); Carbon Dioxide 20.5 mmol/L (21.0-32.0); Chloride 102 mmol/L (98-108); Cholesterol 178 mg/dL (<=200); Creatinine, Serum 0.76 mg/dL (0.70-1.20); EST Glomerular Filtration Rate 106 (>60); Globulin 3.7 g/dL (2.2-4.2); Glucose 91 mg/dL (70-99); Hemoglobin A1c 5.7 % (<=5.6); High Density Lipoprotein 37 mg/dL; Low Density Lipoprotein Calc. 118 mg/dL; Potassium 4.5 mmol/L (3.3-5.1); Protein, Total 7.9 g/dL (5.9-8.4); Sodium Level 135 mmol/L (133-145); Total Bilirubin 0.25 mg/dL (0.00-1.30); Triglycerides 112 mg/dL; Very Low Density Lipoprotein 22 mg/dL (5-40); cholesterol:hdl ratio screen 4.78
[2024-06-30 13:40] LABS: Vitamin D,25 Hydroxy 24.5 ng/mL (30-100)
== END | disposition home or self-care (01) ==
LOC: BIMLAB 10:38
PROVIDERS: PCP Internal Medicine; Referring Provider Internal Medicine; Visit Provider Internal Medicine
DX: Z00.00 Encounter for general adult medical examination without abnormal findings (principal); I10 Essential (primary) hypertension; Z82.49 Family history of ischemic heart disease and other diseases of the circulatory system; Z86.32 Personal history of gestational diabetes; E55.9 Vitamin D deficiency, unspecified
CPT/HCPCS: 36415; 80053; 80061; 82306; 83036; 85025

== ENCOUNTER → 2024-08-02 | Outpatient (CLI) | payer MEDICAID, SELFPAY ==
--- NOTE | 2024-08-02 14:58 | NEURO ---
NCS and/or EMG Patient Report Ordering Doctor: Kay Quintero DATE OF SERVICE: 08/02/24 Kemi presents for electrodiagnostic testing of the upper limbs. She reports numbness and tingling in both hands. Electrodiagnostic findings: Right median motor nerve demonstrates normal distal latency, amplitude and conduction velocity. Left median motor nerve demonstrates normal distal latency, amplitude and conduction velocity. Normal ulnar motor response bilaterally. Normal median ulnar F?waves. Absent right median sensory latency at the wrist. Prolonged right left median sensory latency at the wrist. Normal ulnar and radial sensory responses bilaterally. Needle EMG testing was performed in the upper limbs. All muscles tested showed no evidence of denervation with normal motor unit action potentials. Electrodiagnostic assessment: This is an abnormal study in the upper limbs 1. Electrodiagnostic findings are suggestive of bilateral median mononeuropathy. This consistent with a mild bilateral carpal tunnel syndrome 2. No electrodiagnostic evidence is noted for ulnar neuropathy, including cubital tunnel syndrome 3. No electrodiagnostic evidence is noted for cervical radiculopathy. Multi Select Codes Neurology Neurology Interp Codes: 29878-35 Musc test done w/n test comp (interp) (2) and 19349-99 Nrv cndj test 11-12 studies (interp)
== END | disposition home or self-care (01) ==
LOC: PSN 13:45
PROVIDERS: PCP Internal Medicine; Referring Provider Internal Medicine; Visit Provider Internal Medicine
DX: R20.0 Anesthesia of skin (principal); R20.2 Paresthesia of skin
CPT/HCPCS: 95886; 95912